=== PATIENT | female | born 1930 | race Caucasian/White ===

== ENCOUNTER 2017-02-28 19:17 | Inpatient (IN) | payer MEDICARE, BC ==
[~2017-02-28] VITALS: Ht 160 cm; Wt 78.6 kg
[~2017-02-28 19:17] MED LIST: ASPIRIN CHILDRE81 M1 PO; BENAZEPRIL HCT1 TAB PO; BENAZEPRIL HYDR20 MG PO; CO-Q10 300 MG-31 SGL PO; HYDROCHLOROTHIA25 M1 PO; KEFLEX 500MG.500 MG PO; LORAZEPAM1 MG PO; MACROBID 100MG100 MG PO; MULTI VITAMINS1 TA1 PO; PERCOCET 5/3251 EACH PO; TESSALON PERLE100 MG PO; TRICOR 145 MG145 MG PO; VYTORIN 10 MG-41 TAB PO; ZITHROMAX Z-PA250 M1 PO; ZOFRAN4 MG PO
[2017-02-28 19:19] VITALS: BP 165/103
--- OUTSIDE RECORDS SUMMARY | 2017-02-28 19:34 | External Medical Summary Rpt | CCD ---
Demographics Preferred Language Taiwanese Marital Status Unknown Christian Affiliation Unknown Race Unknown Ethnic Group Unknown Author Author , [facility] Organization [facility] Address Unknown Phone Immunization Unable to retrieve immunization data due to connection failure with Immunization Registry. Please try again later.
--- OUTSIDE RECORDS SUMMARY | 2017-02-28 19:34 | External Medical Summary Rpt | CCD ---
Demographics Preferred Language Swazi Marital Status Unknown Jewish Affiliation Unknown Race Unknown Ethnic Group Unknown Author Author , [facility] Organization [facility] Address Unknown Phone Immunization Unable to retrieve immunization data due to connection failure with Immunization Registry. Please try again later.
--- OUTSIDE RECORDS SUMMARY | 2017-02-28 19:34 | External Medical Summary Rpt | CCD ---
Author Author [facility] Organization [facility] Address Unknown Phone Unavailable Purpose Continuity of Care Document - through 2016
--- OUTSIDE RECORDS SUMMARY | 2017-02-28 19:34 | External Medical Summary Rpt | CCD ---
Author Author , [facility] Organization [facility] Address Unknown Phone [email or web address] Providers Care Corrections Identification Technician Name Role Phone Jarred Lara III, MD, Jarred Stewart III, MD Purpose Continuity of Care Document - 03-12-2013 through 2016 Problems Code Diagnosis DOS Provider Status 272.4 272.4 03-12-2013 [place] HYPERLIPIDE [facility] NEC/NOS [facility] 401.9 401.9 03-12-2013 [place] HYPERTENSIO [facility] N NOS Hospital 716.96 716.96 03-12-2013 [place] ARTHROPATHY [facility] NOS-L/LEG Hospital V43.65 V43.65 KNEE 03-12-2013 [place] 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 STATUS V58.69 V58.69 OTH 03-12-2013 [place] MED,LT,[facility] ENT USE [facility] [id number] J18.9 PNEUMONIA, UNSPECIFIED ORGANISM N39.0 URINARY TRACT INFECTION, SITE NOT SPECIFIED S02.92XA UNSP FRACTURE OF FACIAL BONES, INIT FOR CLOS FX Allergies, Adverse Reactions, Alerts Type Allergy to substance Adverse Reaction to Substance Substance Reaction Severity NO KNOWN ALLERGIES Unknown Unknown Medications Na ND Rx Da Fi Fi Am Da Di Ph RX Ph St me C No te ll ll ou ys ag ar # ys at rm s nt no ma ic us Or Da si cy ia de te s n re d MA 00 11 0 No PA 90 -0 P 41 6- Lo 32 98 20 ng 5 26 13 er MG 1 Ac TA ti BL ve ET Vital Signs 03-12-2013 16:18 Name Value Interpretat Reference Comment ion Range BP 81 mm[Hg] Diastolic BP Systolic 157 mm[Hg] Heart 76 /min Rate/Pulse O2% 97 % Respiratory 20 /min Rate 03-12-2013 15:24 Name Value Interpretat Reference Comment ion Range BP 66 mm[Hg] Diastolic BP Systolic 150 mm[Hg] Heart 51 /min Rate/Pulse O2% 96 % Respiratory 20 /min Rate Results Labs Lab Lab Date Result Refere Interp Status Commen Order Detail nces retati t Range on Creat Bld-mCnc (06-15-2016 14:53) Creat 1.00 0.60-1. complet BldA-mC 017 mg/dL 30 ed nc 14:53 Comment: Serial Number: [id number] [employer] Producer: [id number] Comp Metab 1998 Pnl SerPl (06-15-2016 14:24) Comment: [employer] Guidelines Comment: Comment: Stage Description GFR Comment: 1 Normal or High 90+ Comment: 2 Mild decrease 60-89 Comment: 3 Moderate decrease 30-59 Comment: 4 Severe decrease 15-29 Comment: 5 Kidney failure <15 Anion 8.0 3.0-11. complet Gap3 017 mmol/L 0 ed SerPl-s 14:24 Cnc BUN/Cre 18.8 7.0-25. complet at 017 0 ed SerPl 14:24 Albumin 1.3 1.5-2.5 complet /Glob 017 g/dL ed SerPl 14:24 Globuli 3.1 complet n Ur 017 gm/dL ed Elph-mC 14:24 nc GFR/BSA 69 >60 complet .pred 017 mL/min/ ed SerPl 14:24 1.73 MDRD-Ar VRat Bilirub 0.3 0.3-1.2 complet 017 mg/dL ed SerPl-m 14:24 Cnc ALP 128 U/L 25-100 complet SerPl-c 017 ed Cnc 14:24 AST 37 U/L 0-33 complet SerPl-c 017 ed Cnc 14:24 ALT 20 U/L 7-40 complet SerPl w 017 ed 14:24 P-5'-P- cCnc Albumin 4.00 3.20-4. complet 017 g/dL 80 ed SerPl-m 14:24 Cnc Prot 7.1 5.7-8.2 complet SerPl-m 017 g/dL ed Cnc 14:24 Calcium 10.1 8.7-10. complet 017 mg/dL 4 ed XXX-sCn 14:24 c CO2 28.0 20.0-31 complet SerPl-s 017 mmol/L .0 ed Cnc 14:24 Chlorid 95 99-109 complet e 017 mmol/L ed SerPl-s 14:24 Cnc Potassi 4.6 3.5-5.5 complet um 017 mmol/L ed Bld-sCn 14:24 c Sodium 131 132-146 complet Bld-sCn 017 mmol/L ed c 14:24 Creat 0.80 0.60-1. complet Bld-mCn 017 mg/dL 30 ed c 14:24 BUN 15 9-23 complet Bld-mCn 017 mg/dL ed c 14:24 Glucose 108 70-100 complet 017 mg/dL ed Bld-mCn 14:24 c CBC W Diff pnl,unspecified Bld (06-15-2016 14:24) Monocyt 0.70 0.00-1. complet es # 017 10*3/mm 00 ed Bld 14:24 3 Auto Lymphoc 0.90 0.60-4. complet ytes # 017 10*3/mm 80 ed Bld 14:24 3 Auto Neutrop 10.30 1.50-8. complet hils # 017 10*3/mm 30 ed Bld 14:24 3 Auto Monocyt 6.1 % 0.0-12. complet es NFr 017 0 ed Bld 14:24 Auto Lymphoc 7.2 % 24.0-44 complet ytes 017 .0 ed NFr Bld 14:24 Auto Neutrop 86.7 % 41.0-71 complet hils 017 .0 ed NFr Bld 14:24 Auto Platele 513 150-450 complet t # Bld 017 10*3/mm ed Auto 14:24 3 PMV Bld 6.1 fL 6.0-12. complet Auto 017 0 ed 14:24 MCHC 33.8 32.0-36 complet RBC 017 g/dL .0 ed Auto-mC 14:24 nc MCH RBC 29.9 pg 27.0-31 complet Qn 017 .0 ed Auto 14:24 MCV RBC 88.4 fL 80.0-99 complet Auto 017 .0 ed 14:24 RDW RBC 21.4 % 11.3-14 complet 017 .5 ed Auto-Rt 14:24 o Hct VFr 27.0 % 34.5-44 complet Bld 017 .0 ed Auto 14:24 Hgb 9.1 11.5-15 complet Bld-mCn 017 g/dL .5 ed c 14:24 RBC # 09- 3.06 3.89-5. complet Bld 017 10*6/mm 14 ed Auto 14:24 3 WBC 11.90 3.50-10 complet nRBC 017 10*3/mm .80 ed cor # 14:24 3 Bld Total Cells Counted Bld (06-03-2016 07:56) WBC [id number] Normal complet morph 017 01 ed Bld 07:56 Normal result SCT Plat [id number] Normal complet morph 017 01 ed Bld 07:56 Normal result SCT RBC [id number] Normal complet morph 017 01 ed Bld 07:56 Normal result SCT CBC W Diff pnl,unspecified Bld (06-03-2016 07:56) nRBC/10 0.0 0.0-0.0 complet 0 WBC 017 /100 ed Bld 07:56 WBC Manual- Rto Imm 0.01 0.00-0. complet Granulo 017 10*3/mm 03 ed cytes # 07:56 3 Bld Basophi 0.00 0.00-0. complet ls # 017 10*3/mm 20 ed Bld 07:56 3 Auto Eosinop 0.06 0.10-0. complet hil # 017 10*3/mm 30 ed Bld 07:56 3 Auto Monocyt 0.56 0.00-1. complet es # 017 10*3/mm 00 ed Bld 07:56 3 Auto Lymphoc 0.59 0.60-4. complet ytes # 017 10*3/mm 80 ed Bld 07:56 3 Auto Neutrop 06-03-2 1.51 1.50-8. complet hils # 017 10*3/mm 30 ed Bld 07:56 3 Auto Imm 0.4 % 0.0-0.6 complet Granulo 017 ed cytes 07:56 NFr Bld Basophi 0.0 % 0.0-1.0 complet ls NFr 017 ed Bld 07:56 Auto Eosinop 2.2 % 0.0-3.0 complet hil NFr 017 ed Bld 07:56 Auto Monocyt 20.5 % 0.0-12. complet es NFr 017 0 ed Bld 07:56 Auto Lymphoc 21.6 % 24.0-44 complet ytes 017 .0 ed NFr Bld 07:56 Auto Neutrop 55.3 % 41.0-71 complet hils 017 .0 ed NFr Bld 07:56 Auto Platele 171 150-450 complet t # Bld 017 10*3/mm ed Auto 07:56 3 PMV Bld 8.5 fL 6.0-12. complet Auto 017 0 ed 07:56 RDW RBC 61.4 fl 37.0-54 complet Auto 017 .0 ed 07:56 RDW RBC 19.4 % 11.3-14 complet 017 .5 ed Auto-Rt 07:56 o MCHC 33.1 32.0-36 complet RBC 017 g/dL .0 ed Auto-mC 07:56 nc MCH RBC 29.2 pg 27.0-31 complet Qn 017 .0 ed Auto 07:56 MCV RBC 88.2 fL 80.0-99 complet Auto 017 .0 ed 07:56 Hct VFr 31.4 % 34.5-44 complet Bld 017 .0 ed Auto 07:56 Hgb 10.4 11.5-15 complet Bld-mCn 017 g/dL .5 ed c 07:56 RBC # 06-03-2 3.56 3.89-5. complet Bld 017 10*6/mm 14 ed Auto 07:56 3 WBC 06-03-2 2.73 3.50-10 complet nRBC 017 10*3/mm .80 ed cor # 07:56 3 Bld Comp Metab 1997 Pnl SerPl (06-02-2016 04:25) Anion 2.0 3.0-11. complet Gap3 017 mmol/L 0 ed SerPl-s 04:25 Cnc BUN/Cre 28.9 7.0-25. complet at 017 0 ed SerPl 04:25 Albumin 1.1 1.5-2.5 complet /Glob 017 g/dL ed SerPl 04:25 Globuli 2.8 complet n Ur 017 gm/dL ed Elph-mC 04:25 nc GFR/BSA 60 >60 complet .pred 017 mL/min/ ed SerPl 04:25 1.73 MDRD-Ar VRat Bilirub 0.3 0.3-1.2 complet 017 mg/dL ed SerPl-m 04:25 Cnc ALP 117 U/L 25-100 complet SerPl-c 017 ed Cnc 04:25 AST 39 U/L 0-33 complet SerPl-c 017 ed Cnc 04:25 ALT 35 U/L 7-40 complet SerPl w 017 ed 04:25 P-5'-P- cCnc Albumin 3.20 3.20-4. complet 017 g/dL 80 ed SerPl-m 04:25 Cnc Prot 6.0 5.7-8.2 complet SerPl-m 017 g/dL ed Cnc 04:25 Calcium 8.9 8.7-10. complet 017 mg/dL 4 ed XXX-sCn 04:25 c CO2 28.0 20.0-31 complet SerPl-s 017 mmol/L .0 ed Cnc 04:25 Chlorid 101 99-109 complet e 017 mmol/L ed SerPl-s 04:25 Cnc Potassi 4.3 3.5-5.5 complet um 017 mmol/L ed Bld-sCn 04:25 c Sodium 131 132-146 complet Bld-sCn 017 mmol/L ed c 04:25 Creat 0.90 0.60-1. complet Bld-mCn 017 mg/dL 30 ed c 04:25 BUN 26 9-23 complet Bld-mCn 017 mg/dL ed c 04:25 Glucose 102 70-100 complet 017 mg/dL ed Bld-mCn 04:25 c aPTT PPP (06-02-2016 04:25) aPTT 32.3 24.0-31 complet PPP 017 seconds .0 ed 04:25 PT PPP (06-02-2016 04:25) INR PPP 0.97 complet 017 ed 04:25 PT PPP 10.6 9.6-11. complet 017 Seconds 5 ed 04:25 CBC W Diff pnl,unspecified Bld (06-02-2016 04:25) Imm 06-02-2 0.01 0.00-0. complet Granulo 017 10*3/mm 03 ed cytes # 04:25 3 Bld Basophi 2 0.00 0.00-0. complet ls # 017 10*3/mm 20 ed Bld 04:25 3 Auto Eosinop 0.06 0.10-0. complet hil # 017 10*3/mm 30 ed Bld 04:25 3 Auto Monocyt 06-02-2 0.29 0.00-1. complet es # 017 10*3/mm 00 ed Bld 04:25 3 Auto Lymphoc 0.64 0.60-4. complet ytes # 017 10*3/mm 80 ed Bld 04:25 3 Auto Neutrop 06-02-2 1.73 1.50-8. complet hils # 017 10*3/mm 30 ed Bld 04:25 3 Auto Imm 0.4 % 0.0-0.6 complet Granulo 017 ed cytes 04:25 NFr Bld Basophi 0.0 % 0.0-1.0 complet ls NFr 017 ed Bld 04:25 Auto Eosinop 2.2 % 0.0-3.0 complet hil NFr 017 ed Bld 04:25 Auto Monocyt 10.6 % 0.0-12. complet es NFr 017 0 ed Bld 04:25 Auto Lymphoc 23.4 % 24.0-44 complet ytes 017 .0 ed NFr Bld 04:25 Auto Neutrop 63.4 % 41.0-71 complet hils 017 .0 ed NFr Bld 04:25 Auto Platele 176 150-450 complet t # Bld 017 10*3/mm ed Auto 04:25 3 PMV Bld 7.6 fL 6.0-12. complet Auto 017 0 ed 04:25 RDW RBC 72.3 fl 37.0-54 complet Auto 017 .0 ed 04:25 RDW RBC 21.6 % 11.3-14 complet 017 .5 ed Auto-Rt 04:25 o MCHC 32.3 32.0-36 complet RBC 017 g/dL .0 ed Auto-mC 04:25 nc MCH RBC 29.7 pg 27.0-31 complet Qn 017 .0 ed Auto 04:25 MCV RBC 92.0 fL 80.0-99 complet Auto 017 .0 ed 04:25 Hct VFr 22.9 % 34.5-44 complet Bld 017 .0 ed Auto 04:25 Hgb 7.4 11.5-15 complet Bld-mCn 017 g/dL .5 ed c 04:25 RBC # 06-02-2 2.49 3.89-5. complet Bld 017 10*6/mm 14 ed Auto 04:25 3 WBC 2.73 3.50-10 complet nRBC 017 10*3/mm .80 ed cor # 04:25 3 Bld aPTT PPP (06-01-2016 12:54) aPTT 30.6 24.0-31 complet PPP 017 seconds .0 ed 12:54 PT PPP (06-01-2016 12:54) INR PPP 0.98 complet 017 ed 12:54 PT PPP 10.7 9.6-11. complet 017 Seconds 5 ed 12:54 Creat Bld-mCnc (05-25-2016 16:25) Creat 1.20 0.60-1. complet BldA-mC 017 mg/dL 30 ed nc 16:25 Comp Metab 1998 Pnl SerPl (05-25-2016 15:45) Anion 11.0 3.0-11. complet Gap3 017 mmol/L 0 ed SerPl-s 15:45 Cnc BUN/Cre 19.1 7.0-25. complet at 017 0 ed SerPl 15:45 Albumin 1.3 1.5-2.5 complet /Glob 017 g/dL ed SerPl 15:45 Globuli 2.9 complet n Ur 017 gm/dL ed Elph-mC 15:45 nc GFR/BSA 47 >60 complet .pred 017 mL/min/ ed SerPl 15:45 1.73 MDRD-Ar VRat Bilirub 0.2 0.3-1.2 complet 017 mg/dL ed SerPl-m 15:45 Cnc ALP 101 U/L 25-100 complet SerPl-c 017 ed Cnc 15:45 AST 19 U/L 0-33 complet SerPl-c 017 ed Cnc 15:45 ALT 13 U/L 7-40 complet SerPl w 017 ed 15:45 P-5'-P- cCnc Albumin 3.70 3.20-4. complet 017 g/dL 80 ed SerPl-m 15:45 Cnc Prot 6.6 5.7-8.2 complet SerPl-m 017 g/dL ed Cnc 15:45 Calcium 9.9 8.7-10. complet 017 mg/dL 4 ed XXX-sCn 15:45 c CO2 28.0 20.0-31 complet SerPl-s 017 mmol/L .0 ed Cnc 15:45 Chlorid 98 99-109 complet e 017 mmol/L ed SerPl-s 15:45 Cnc Potassi 4.0 3.5-5.5 complet um 017 mmol/L ed Bld-sCn 15:45 c Sodium 137 132-146 complet Bld-sCn 017 mmol/L ed c 15:45 Creat 1.10 0.60-1. complet Bld-mCn 017 mg/dL 30 ed c 15:45 BUN 21 9-23 complet Bld-mCn 017 mg/dL ed c 15:45 Glucose 191 70-100 complet 017 mg/dL ed Bld-mCn 15:45 c CBC W Diff pnl,unspecified Bld (05-25-2016 15:45) MCHC 32.2 32.0-36 complet RBC 017 g/dL .0 ed Auto-mC 15:45 nc Monocyt 0.65 0.00-1. complet es # 017 10*3/mm 00 ed Bld 15:45 3 Auto Lymphoc 0.60 0.60-4. complet ytes # 017 10*3/mm 80 ed Bld 15:45 3 Auto Neutrop 12.19 1.50-8. complet hils # 017 10*3/mm 30 ed Bld 15:45 3 Auto Imm 0.4 % 0.0-0.6 complet Granulo 017 ed cytes 15:45 NFr Bld Basophi 0.0 % 0.0-1.0 complet ls NFr 017 ed Bld 15:45 Auto Eosinop 0.0 % 0.0-3.0 complet hil NFr 017 ed Bld 15:45 Auto Monocyt 4.8 % 0.0-12. complet es NFr 017 0 ed Bld 15:45 Auto Lymphoc 4.4 % 24.0-44 complet ytes 017 .0 ed NFr Bld 15:45 Auto Neutrop 90.4 % 41.0-71 complet hils 017 .0 ed NFr Bld 15:45 Auto Platele 464 150-450 complet t # Bld 017 10*3/mm ed Auto 15:45 3 PMV Bld 2 8.2 fL 6.0-12. complet Auto 017 0 ed 15:45 RDW RBC 05-25- 73.2 fl 37.0-54 complet Auto 017 .0 ed 15:45 RDW RBC 05-25- 22.3 % 11.3-14 complet 017 .5 ed Auto-Rt 15:45 o MCH RBC 29.7 pg 27.0-31 complet Qn 017 .0 ed Auto 15:45 MCV RBC 92.4 fL 80.0-99 complet Auto 017 .0 ed 15:45 Hct VFr 25.5 % 34.5-44 complet Bld 017 .0 ed Auto 15:45 Hgb 8.2 11.5-15 complet Bld-mCn 017 g/dL .5 ed c 15:45 RBC # 05-25-2 2.76 3.89-5. complet Bld 017 10*6/mm 14 ed Auto 15:45 3 WBC 05-25-2 13.49 3.50-10 complet nRBC 017 10*3/mm .80 ed cor # 15:45 3 Bld Imm 05-25-2 0.05 0.00-0. complet Granulo 017 10*3/mm 03 ed cytes # 15:45 3 Bld Basophi 05-25- 0.00 0.00-0. complet ls # 017 10*3/mm 20 ed Bld 15:45 3 Auto Eosinop 0.00 0.10-0. complet hil # 017 10*3/mm 30 ed Bld 15:45 3 Auto Comp Metab 1997 Pnl SerPl (05-04-2016 10:09) Anion 8.0 3.0-11. complet Gap3 016 mmol/L 0 ed SerPl-s 10:09 Cnc BUN/Cre 18.9 7.0-25. complet at 016 0 ed SerPl 10:09 Albumin 1.5 1.5-2.5 complet /Glob 016 g/dL ed SerPl 10:09 Globuli 2.4 complet n Ur 016 gm/dL ed Elph-mC 10:09 nc GFR/BSA 60 >60 complet .pred 016 mL/min/ ed SerPl 10:09 1.73 MDRD-Ar VRat Bilirub 0.2 0.3-1.2 complet 016 mg/dL ed SerPl-m 10:09 Cnc ALP 119 U/L 25-100 complet SerPl-c 016 ed Cnc 10:09 AST 26 U/L 0-33 complet SerPl-c 016 ed Cnc 10:09 ALT 20 U/L 7-40 complet SerPl w 016 ed 10:09 P-5'-P- cCnc Albumin 3.60 3.20-4. complet 016 g/dL 80 ed SerPl-m 10:09 Cnc Prot 6.0 5.7-8.2 complet SerPl-m 016 g/dL ed Cnc 10:09 Calcium 9.6 8.7-10. complet 016 mg/dL 4 ed XXX-sCn 10:09 c CO2 28.0 20.0-31 complet SerPl-s 016 mmol/L .0 ed Cnc 10:09 Chlorid 100 99-109 complet e 016 mmol/L ed SerPl-s 10:09 Cnc Potassi 5.0 3.5-5.5 complet um 016 mmol/L ed Bld-sCn 10:09 c Sodium 136 132-146 complet Bld-sCn 016 mmol/L ed c 10:09 Creat 0.90 0.60-1. complet Bld-mCn 016 mg/dL 30 ed c 10:09 Glucose 98 70-100 complet 016 mg/dL ed Bld-mCn 10:09 c BUN 17 9-23 complet Bld-mCn 016 mg/dL ed c 10:09 CBC W Diff pnl,unspecified Bld (05-04-2016 10:09) RBC # 05-04-2 3.21 3.89-5. complet Bld 016 10*6/mm 14 ed Auto 10:09 3 Imm 12-29-2 0.02 0.00-0. complet Granulo 016 10*3/mm 03 ed cytes # 10:09 3 Bld Basophi 05-04-2 0.00 0.00-0. complet ls # 016 10*3/mm 20 ed Bld 10:09 3 Auto Eosinop 29-2 0.01 0.10-0. complet hil # 016 10*3/mm 30 ed Bld 10:09 3 Auto Monocyt 05-04-2 0.91 0.00-1. complet es # 016 10*3/mm 00 ed Bld 10:09 3 Auto Lymphoc 05-04-2 0.80 0.60-4. complet ytes # 016 10*3/mm 80 ed Bld 10:09 3 Auto Neutrop 05-04-2 9.16 1.50-8. complet hils # 016 10*3/mm 30 ed Bld 10:09 3 Auto Imm 05-04-2 0.2 % 0.0-0.6 complet Granulo 016 ed cytes 10:09 NFr Bld Basophi 05-04-2 0.0 % 0.0-1.0 complet ls NFr 016 ed Bld 10:09 Auto Eosinop 05-04-2 0.1 % 0.0-3.0 complet hil NFr 016 ed Bld 10:09 Auto Monocyt 05-04-2 8.3 % 0.0-12. complet es NFr 016 0 ed Bld 10:09 Auto Lymphoc 05-04-2 7.3 % 24.0-44 complet ytes 016 .0 ed NFr Bld 10:09 Auto Neutrop 05-04-2 84.1 % 41.0-71 complet hils 016 .0 ed NFr Bld 10:09 Auto Platele 05-04-2 416 150-450 complet t # Bld 016 10*3/mm ed Auto 10:09 3 PMV Bld 05-04-2 8.7 fL 6.0-12. complet Auto 016 0 ed 10:09 RDW RBC 05-04-2 55.0 fl 37.0-54 complet Auto 016 .0 ed 10:09 RDW RBC 05-04-2 18.8 % 11.3-14 complet 016 .5 ed Auto-Rt 10:09 o MCHC 12-29-2 32.4 32.0-36 complet RBC 016 g/dL .0 ed Auto-mC 10:09 nc MCH RBC 28.7 pg 27.0-31 complet Qn 016 .0 ed Auto 10:09 MCV RBC 88.5 fL 80.0-99 complet Auto 016 .0 ed 10:09 Hct VFr 28.4 % 34.5-44 complet Bld 016 .0 ed Auto 10:09 Hgb 9.2 11.5-15 complet Bld-mCn 016 g/dL .5 ed c 10:09 WBC 10.90 3.50-10 complet nRBC 016 10*3/mm .80 ed cor # 10:09 3 Bld Creat Bld-mCnc (04-13-2016 15:06) Creat 1.10 0.60-1. complet BldA-mC 016 mg/dL 30 ed nc 15:06 Comp Metab 1998 Pnl SerPl (04-13-2016 14:34) Anion 8.0 3.0-11. complet Gap3 016 mmol/L 0 ed SerPl-s 14:34 Cnc BUN/Cre 20.0 7.0-25. complet at 016 0 ed SerPl 14:34 Albumin 1.3 complet /Glob 016 g/dL ed SerPl 14:34 Globuli 2.8 complet n Ur 016 gm/dL ed Elph-mC 14:34 nc GFR/BSA 47 >60 complet .pred 016 mL/min/ ed SerPl 14:34 1.73 MDRD-Ar VRat Bilirub 0.2 0.3-1.2 complet 016 mg/dL ed SerPl-m 14:34 Cnc ALP 94 U/L 25-100 complet SerPl-c 016 ed Cnc 14:34 AST 24 U/L 0-33 complet SerPl-c 016 ed Cnc 14:34 ALT 18 U/L 7-40 complet SerPl w 016 ed 14:34 P-5'-P- cCnc Albumin 3.70 3.20-4. complet 016 g/dL 80 ed SerPl-m 14:34 Cnc Prot 6.5 5.7-8.2 complet SerPl-m 016 g/dL ed Cnc 14:34 Calcium 9.8 8.7-10. complet 016 mg/dL 4 ed XXX-sCn 14:34 c CO2 25.0 20.0-31 complet SerPl-s 016 mmol/L .0 ed Cnc 14:34 Chlorid 101 99-109 complet e 016 mmol/L ed SerPl-s 14:34 Cnc Potassi 3.8 3.5-5.5 complet um 016 mmol/L ed Bld-sCn 14:34 c Sodium 134 132-146 complet Bld-sCn 016 mmol/L ed c 14:34 Creat 1.10 0.60-1. complet Bld-mCn 016 mg/dL 30 ed c 14:34 BUN 22 9-23 complet Bld-mCn 016 mg/dL ed c 14:34 Glucose 205 70-100 complet 016 mg/dL ed Bld-mCn 14:34 c CBC W Diff pnl,unspecified Bld (04-13-2016 14:34) Monocyt 0.20 0.00-1. complet es # 016 10*3/mm 00 ed Bld 14:34 3 Auto Lymphoc 0.70 0.60-4. complet ytes # 016 10*3/mm 80 ed Bld 14:34 3 Auto Neutrop 8.00 1.50-8. complet hils # 016 10*3/mm 30 ed Bld 14:34 3 Auto Monocyt 2.1 % 0.0-12. complet es NFr 016 0 ed Bld 14:34 Auto Lymphoc 8.2 % 24.0-44 complet ytes 016 .0 ed NFr Bld 14:34 Auto Neutrop 89.7 % 41.0-71 complet hils 016 .0 ed NFr Bld 14:34 Auto Platele 414 150-450 complet t # Bld 016 10*3/mm ed Auto 14:34 3 PMV Bld 6.7 fL 6.0-12. complet Auto 016 0 ed 14:34 MCHC 31.6 32.0-36 complet RBC 016 g/dL .0 ed Auto-mC 14:34 nc MCH RBC 26.8 pg 27.0-31 complet Qn 016 .0 ed Auto 14:34 MCV RBC 84.9 fL 80.0-99 complet Auto 016 .0 ed 14:34 RDW RBC 18.5 % 11.3-14 complet 016 .5 ed Auto-Rt 14:34 o Hct VFr 30.3 % 34.5-44 complet Bld 016 .0 ed Auto 14:34 Hgb 9.6 11.5-15 complet Bld-mCn 016 g/dL .5 ed c 14:34 RBC # 08- 3.57 3.89-5. complet Bld 016 10*6/mm 14 ed Auto 14:34 3 WBC 8.90 3.50-10 complet nRBC 016 10*3/mm .80 ed cor # 14:34 3 Bld Creat Bld-mCnc (03-23-2016 14:24) Creat 1.10 0.60-1. complet BldA-mC 016 mg/dL 30 ed nc 14:24 Comp Metab 1998 Pnl SerPl (03-23-2016 13:50) Anion 6.0 3.0-11. complet Gap3 016 mmol/L 0 ed SerPl-s 13:50 Cnc BUN/Cre 18.0 7.0-25. complet at 016 0 ed SerPl 13:50 Albumin 1.1 complet /Glob 016 g/dL ed SerPl 13:50 Globuli 3.2 complet n Ur 016 gm/dL ed Elph-mC 13:50 nc GFR/BSA 53 >60 complet .pred 016 mL/min/ ed SerPl 13:50 1.73 MDRD-Ar VRat Bilirub 0.3 0.3-1.2 complet 016 mg/dL ed SerPl-m 13:50 Cnc ALP 03-23-2 83 U/L 25-100 complet SerPl-c 016 ed Cnc 13:50 AST 03-23-2 18 U/L 0-33 complet SerPl-c 016 ed Cnc 13:50 ALT 17-2 12 U/L 7-40 complet SerPl w 016 ed 13:50 P-5'-P- cCnc Albumin 03-23- 3.60 3.20-4. complet 016 g/dL 80 ed SerPl-m 13:50 Cnc Prot 17-2 6.8 5.7-8.2 complet SerPl-m 016 g/dL ed Cnc 13:50 Calcium 03-23-2 10.5 8.7-10. complet 016 mg/dL 4 ed XXX-sCn 13:50 c CO2 03-23-2 28.0 20.0-31 complet SerPl-s 016 mmol/L .0 ed Cnc 13:50 Chlorid 03-23-2 96 99-109 complet e 016 mmol/L ed SerPl-s 13:50 Cnc Potassi 03-23-2 4.1 3.5-5.5 complet um 016 mmol/L ed Bld-sCn 13:50 c Sodium 03-23-2 130 132-146 complet Bld-sCn 016 mmol/L ed c 13:50 Creat 03-23-2 1.00 0.60-1. complet Bld-mCn 016 mg/dL 30 ed c 13:50 BUN 03-23-2 18 9-23 complet Bld-mCn 016 mg/dL ed c 13:50 Glucose 03-23-2 160 70-100 complet 016 mg/dL ed Bld-mCn 13:50 c CBC W Diff pnl,unspecified Bld (03-23-2016 13:50) Neutrop 03-23-2 11.30 1.50-8. complet hils # 016 10*3/mm 30 ed Bld 13:50 3 Auto Platele 03-23-2 397 150-450 complet t # Bld 016 10*3/mm ed Auto 13:50 3 PMV Bld 03-23-2 6.7 fL 6.0-12. complet Auto 016 0 ed 13:50 Lymphoc 03-23-2 0.80 0.60-4. complet ytes # 016 10*3/mm 80 ed Bld 13:50 3 Auto MCH RBC 11-17-2 27.3 pg 27.0-31 complet Qn 016 .0 ed Auto 13:50 MCV RBC 11-17-2 83.2 fL 80.0-99 complet Auto 016 .0 ed 13:50 RDW RBC 11-17-2 15.6 % 11.3-14 complet 016 .5 ed Auto-Rt 13:50 o Hct VFr 11-17-2 36.4 % 34.5-44 complet Bld 016 .0 ed Auto 13:50 Hgb 11-17-2 12.0 11.5-15 complet Bld-mCn 016 g/dL .5 ed c 13:50 RBC # 11-17-2 4.38 3.89-5. complet Bld 016 10*6/mm 14 ed Auto 13:50 3 WBC 11-17-2 12.40 3.50-10 complet nRBC 016 10*3/mm .80 ed cor # 13:50 3 Bld Monocyt 11-17-2 2.6 % 0.0-12. complet es NFr 016 0 ed Bld 13:50 Auto Lymphoc 11-17-2 6.6 % 24.0-44 complet ytes 016 .0 ed NFr Bld 13:50 Auto Neutrop 11-17-2 90.8 % 41.0-71 complet hils 016 .0 ed NFr Bld 13:50 Auto Monocyt 11-17-2 0.30 0.00-1. complet es # 016 10*3/mm 00 ed Bld 13:50 3 Auto MCHC 11-17-2 32.9 32.0-36 complet RBC 016 g/dL .0 ed Auto-mC 13:50 nc Fungus XXX Cult (03-08-2016 13:43) Fungus No complet Wnd 016 fungus ed Cult 13:43 isolate d at 6 weeks Mycobacterium XXX Cult (03-08-2016 13:43) Night No acid complet blue 016 fast ed stain 13:43 bacilli Tiss seen on concent rated smear Chymotr No AFB complet yp Ab 016 isolate ed Ser-aCn 13:43 d at 6 c weeks Bacteria XXX Resp Cult (03-08-2016 13:43) Gram No WBCs complet Stn XXX 016 or ed 13:43 organis ms seen Fungus XXX PAS Stn (03-08-2016 13:43) Gie Stn No complet XXX 016 Pneumoc ed 13:43 ystis jirovec ci (former ly Pneumoc ystis carinii ) noted on smear. Gie Stn No complet XXX 016 fungal ed 13:43 element s seen Procedures Procedure DOS Code Location Performer Comment APPLICATI 93.54 Jarred Stewart III, MD Encounters Encounter Start End Date Code Location Performer Type Date Emergency DEVON Stewart (ER) 3 14:45 3 16:28 [facility] Jarred Atkinson
--- OUTSIDE RECORDS SUMMARY | 2017-02-28 19:34 | External Medical Summary Rpt | CCD ---
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 Name Role Phone Jarred Lara III, MD, Jarred Stewart III, MD Purpose Continuity of Care Document - 03-12-2013 through 2016 Problems Code Diagnosis DOS Provider Status 272.4 272.4 03-12-2013 Lawrence HYPERLIPIDE [facility] NEC/NOS Hospital 401.9 401.9 03-12-2013 Lawrence HYPERTENSIO [facility] N NOS Hospital 716.96 716.96 03-12-2013 Lawrence ARTHROPATHY [facility] NOS-L/LEG Hospital V43.65 V43.65 KNEE 03-12-2013 Lawrence JOINT [facility] REPLACEMENT Hospital STATUS V58.69 V58.69 OTH 03-12-2013 Lawrence MED,LT,[facility] ENT USE [facility] [id number] J18.9 PNEUMONIA, UNSPECIFIED ORGANISM N39.0 URINARY TRACT [...] 30 ed nc 14:53 Comment: Serial Number: [id number] Classroom Aide: [id number] Comp Metab 1998 Pnl SerPl (06-15-2016 14:24) [...] Total Cells Counted Bld (06-03-2016 07:56) WBC [id number] Normal complet morph 017 01 ed Bld 07:56 Normal result SCT Plat [id number] Normal complet morph 017 01 ed Bld 07:56 Normal result SCT RBC [id number] Normal complet morph 017 01 ed Bld [...] DEVON Stewart (ER) 3 14:45 3 16:28 [facility] Jarred Atkinson
--- NOTE | 2017-02-28 21:15 | Emergency Room Report ---
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 N Clinical Suspician of Infection? N Mental Status: 1 - Regular (Normal Baseline) Sepsis Risk:Low Sepsis Risk Have you (or family members/close friends) recently traveled outside the [place]? N If Yes, where/when: Have you had exposure to infectious disease within the past month? N TB? Other? Specify: Source patient, RN notes reviewed, family, RN/MD Exam Limitations no limitations Comment This is a 86-year-old female patient arriving to the emergency room by EMS after tripping onto a gown and falling on her LEFT side, just half an hour prior to arrival. Patient denies any neck pain, denies any head injury or loss of consciousness. She is complaining with LEFT hip pain and LEFT shoulder pain. He is a known history of RIGHT lung cancer, stage IV, currently in hospice. She is oxygen dependent at home. ALLERGIES Coded Allergies: No Known Drug Allergies (NKDA) (-- 03/01/17) Home Medications Active Scripts Oxycodone 5MG/[id number] (Oxycodone-Acetaminophen 5-325) 1 TAB PO Q4HP PRN pain #10 TAB Prov: 02/02/15 NITROFURANTOIN (Nitrofurantoin) 100 MG PO Q12 #20 CAP Prov: 02/02/15 Reported Medications Lorazepam 1 MG PO BEDTIME Aspirin 81 MG PO DAILY HYDROCHLOROTHIAZIDE (Hydrochlorothiazide) 25 MG PO DAILY Coenzyme Q10/Vitamin E (Co-Q10 300 Mg-3 Iu) 1 SGL PO DAILY MULTIVITAMIN (One Daily Multivitamin) 1 TAB PO DAILY Benazepril Hcl (Benazepril HCl) 20 MG PO DAILY #90 History Medical History General CAD? No Angina: No [place]: No Hypertension? Yes Hyperlipidemia? Yes CHF? No DVT? No PE? No COPD? No Asthma? No Anemia? No GERD? No Gastric ulcers? No GI Bleed? No Hernia? No Thyroid Problems? No Hypothyroidism? No CVA? No Seizures? No Diabetes? No Renal Insuffiency? No End Stage Renal Disease? No UTI? No Stones? No BPH? No GB Disease: Yes Nephritic Syndrome? No Asplenia? No Hepatitis? No Sickle Cell Disease? No Arthritis? No Migraines? No Cataracts? Yes Glaucoma? No MRSA? No HIV? No TB? No Anxiety? No Depression? No Cancer? Yes Site: LUNG CA Immunization Hx DT/Tetanus [id number] Flu THISFLUSEA Pneumonia Received In Past Surgical Hx Previous Surgery?Y TUBAL LIG Hysterect BLADDER TUCK Back. LEFT KNEE CATARACTS CHEMO/RADIATION 2014 Family History Family Hx Diabetes No CAD Yes Hypertension Yes Hyperlipidemia Yes Cancer Yes TB No Social History Smoking Hx Smoker: Never Smoker Tobacco: No Alcohol Alcohol: No Review of Systems All Other Systems Reviewed and Negative Musculoskeletal joint pain (LEFT hip/LEFT shoulder) Physical Exam Vital Signs Vital Signs Date Time Temp Pulse Resp B/P Pulse O2 O2 Flow FiO2 Ox Delivery Rate 02/28 2155 83 02/28 2155 90 OXYGEN 02/28 2141 98.3 65 22 146/77 96 4 02/283 2 02/28 2133 2 02/28 2133 90 OXYGEN 2 02/28 2133 90 OXYGEN 3 02/28 2123 98.3 65 22 146/77 96 4 02/28 1919 98.3 85 22 165/103 90 4 General Appearance normal appearance, WD/WN, moderate distress Eye Exam - bilateral eye normal exam, bilateral eye PERRL, bilateral eye EOMI Neck normal inspection, non-tender, supple, full range of motion Respiratory Status Yes: trachea midline, chest symmetrical, non tender chest. No: respiratory distress. Lung Sounds bilateral: normal breath sounds, lungs clear. Cardiovascular normal exam, regular rate/rhythm, no peripheral edema, no gallop, no JVD, no murmur, no rub, normal peripheral pulses Gastrointestinal normal bowel sounds, normal exam, non tender, soft, no organomegaly Extremities LEFT hip tender to palpation, left lower extremity is shorther, rotataed externally. good distal palpable pulses, LEFT proximal humerus to palpation Neurologic alert, anesthesiologist attending II-XII nml as tested, normal exam, oriented x 3 Reflexes Reflexes normal Yes Skin intact, normal color, warm/dry Medical Decision Making LABS/Meds/Orders Pt receiving controlled substance in ED? No Comment 20:45 - case d/w Dr Nohemi Benavides, advised of patient's presentation findings, agreeable with admission/consultation. Advised dr. Benavides that patient is in hospice, due to her lung cancer. 21:12 - case d/w Dr Fontenot, advised of the above, agreeable with hospitalization. Advised dr. Fontenot that patient is in hospice, due to her lung cancer. Care transferred to Dr. Fontenot/Dr. Benavides at this time, will write temporary admission orders per hospital protocol. Upon patient's arrival to the floor, they unit nurse will contact Dr. lyle/Dr. Fontenot in order to obtain full inpatient admission orders. Results/Orders Laboratory Tests 02/28/170: Sodium 135 L, Potassium 4.5, Chloride 99, Carbon Dioxide 31, BUN 31 H, Creatinine 1.5 H, Estimated Creat Clear 32 L, Estimated GFR (MDRD) 33 L, Glucose 114 H, Calcium 9.3, Total Bilirubin 0.3, AST 34, ALT 38, Alkaline Phosphatase 123 H, Creatine Kinase 35, CK-MB (CK-2) Rel Index 1.4, CK and CKMB Interp < 0.5, Troponin I < 0.02, Total Protein 6.7, Albumin 2.7 L, Globulin 4.0 H, Albumin/Globulin Ratio 0.7 L, PT 9.9, INR 0.92, APTT 28.1, WBC 11.5 H, RBC 4.09 L, Hgb 12.1 L, Hct 37.0, MCV 90.4, RDW 14.1, Plt Count 263, MPV 7.0 L, Gran % 86.6 H, Gran # 10.0 H, Total Counted 100, Lymphocytes % 9.2 L, Monocytes % 3.7, Eosinophils % 0.5, Basophils % 0.0 L, Neutrophils 93 H, Lymphocytes (Manual) 5 L, Lymphocytes # 1.1, Monocytes (Manual) 2, Monocytes # 0.4, Eosinophils # 0.1, Basophils # 0.0, Platelet Estimate NORMAL, Hypochromasia 1+, Anisocytosis 1+, PUBS MCHC 32.8, MCH 29.7 Current Medication Orders Sig/Aquilino Start time Last Medication Dose Route Stop Time Status Admin Morphine Sulfate 2 MG Q4HP PRN 02/28 2145 DC 02/28 IV 2237 Ondansetron HCl 4 MG Q4HP PRN 02/28 2145 UNV IV Sodium Chloride 1,000 ML .Q20H 02/28 2145 UNV 02/28 IV 2237 Sodium Chloride 10 ML PRN PRN 02/28 2115 AC IV 03/01 2111 Orders Procedure Date/time Status DIET-NOTHING BY MOUTH 03/01 B Active URINALYSIS/COMPLETE 02/28 2205 Complete DIFFERENTIAL-WBC 02/28 2130 Complete ELECTROCARDIOGRAM REQUEST 02/28 2111 Active IV SALINE LOCK 02/28 2111 Active SALVAGE WINDER 02/28 2111 Active PARTIAL THROMBOPLASTIN TIME 02/28 2111 Complete PROTHROMBIN TIME 02/28 2111 Complete COMPLETE METABOLIC PANEL 02/28 2111 Complete CBC WITH AUTO DIFF 02/28 2111 Complete CARDIAC ENZYMES 02/28 2111 Complete ADMIT PATIENT 02/28 UNK Active PULSE OXIMETRY REQUEST 02/28 UNK Active OXYGEN REQUEST 02/28 UNK Active VITAL SIGNS 02/28 UNK Active BRIEF WRITER 02/28 UNK Active POM NURSE PEPITO HOSE ORDER 02/28 UNK Active URINARY CATHETER INSERT 02/28 UNK Active CODE STATUS 02/28 UNK Active PATIENT ACTIVITY ORDER 02/28 UNK Active Traction, Apply/monitor 02/28 UNK Active PHYSICIANS CONSULT 02/28 UNK Active CM/EKG CM/combination man Rhythm Normal Sinus Rhythm Rate 88 Ectopy No Comments No acute ischemic changes EKG rate, NSR, rhythm, no evid. of ischemic chgs, no ectopy, normal QRS, normal [place], no EKG for comparison, non-spec. ST/Twave chgs, ST elevation, ST depression, LBBB, RBBB, ectopy, abnormal Q waves XRAY/CT/US XRAY/CT/US 1 XRAY chest XR interpretation by reviewed by me Xray Results RIGHT lung opacification, consistent with patient's history of RIGHT lung cancer, metastatic XRAY/CT/US 2 XRAY shoulder (left), LEFT femur- fracture neck of the femur LEFT hip - fracture of the neck of the femur XR interpretation by reviewed by me Xray Results normal/NAD, no fracture seen XRAY/CT/US 3 XRAY hip (left) XR interpretation by reviewed by me Xray Results abnormal Comment Fx intertrochanteric XRAY/CT/US 4 XRAY femur (left) XR interpretation by reviewed by me Xray Results abnormal Comment intertrochanteric fx Departure Departure Time of Disposition 2113 Disposition Still a Patient Clinical Impression Primary Impression: Closed intertrochanteric fracture of left hip Qualifiers: Encounter type: initial encounter Fracture alignment: nondisplaced Qualified Code: S72.145A - Nondisplaced intertrochanteric fracture of left femur , initial encounter for closed fracture Secondary Impressions: Fall Qualifiers: Encounter type: initial encounter Qualified Code: W19.XXXA - Unspecified fall, initial encounter Lung cancer Qualifiers: Laterality: right Lung location: unspecified part of lung Qualified Code: C34.91 - Malignant neoplasm of unspecified part of right bronchus or lung Condition STABLE ED Critical Care Critical Care No at 0548
--- NOTE | 2017-02-28 21:15 | Emergency Room Report ---
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 N Clinical Suspician of Infection? N Mental Status: 1 - Regular (Normal Baseline) Sepsis Risk:Low Sepsis Risk Have you (or family members/close friends) recently traveled outside the [place]? N If Yes, where/when: Have you had exposure to infectious disease within the past month? N TB? Other? Specify: Source patient, RN notes reviewed, family, RN/MD Exam Limitations no limitations Comment This is a 86-year-old female patient arriving to the emergency room by EMS after tripping onto a gown and falling on her LEFT side, just half an hour prior to arrival. Patient denies any neck pain, denies any head injury or loss of consciousness. She is complaining with LEFT hip pain and LEFT shoulder pain. He is a known history of RIGHT lung cancer, stage IV, currently in hospice. She is oxygen dependent at home. ALLERGIES Coded Allergies: No Known Drug Allergies (NKDA) (-- 03/01/17) Home Medications Active Scripts Oxycodone 5MG/[id number] (Oxycodone-Acetaminophen 5-325) 1 TAB PO Q4HP PRN pain #10 TAB Prov: 02/02/15 NITROFURANTOIN (Nitrofurantoin) 100 MG PO Q12 #20 CAP Prov: 02/02/15 Reported Medications Lorazepam 1 MG PO BEDTIME Aspirin 81 MG PO DAILY HYDROCHLOROTHIAZIDE (Hydrochlorothiazide) 25 MG PO DAILY Coenzyme Q10/Vitamin E (Co-Q10 300 Mg-3 Iu) 1 SGL PO DAILY MULTIVITAMIN (One Daily Multivitamin) 1 TAB PO DAILY Benazepril Hcl (Benazepril HCl) 20 MG PO DAILY #90 History Medical History General CAD? No Angina: No NH: No Hypertension? Yes Hyperlipidemia? Yes CHF? No DVT? No PE? No COPD? No Asthma? No Anemia? No GERD? No Gastric ulcers? No GI Bleed? No Hernia? No Thyroid Problems? No Hypothyroidism? No CVA? No Seizures? No Diabetes? No Renal Insuffiency? No End Stage Renal Disease? No UTI? No Stones? No BPH? No GB Disease: Yes Nephritic Syndrome? No Asplenia? No Hepatitis? No Sickle Cell Disease? No Arthritis? No Migraines? No Cataracts? Yes Glaucoma? No MRSA? No HIV? No TB? No Anxiety? No Depression? No Cancer? Yes Site: LUNG CA Immunization Hx DT/Tetanus [id number] Flu THISFLUSEA Pneumonia Received In Past Surgical Hx Previous Surgery?Y TUBAL LIG Hysterect BLADDER TUCK Back. LEFT KNEE CATARACTS CHEMO/RADIATION 2014 Family History Family Hx Diabetes No CAD Yes Hypertension Yes Hyperlipidemia Yes Cancer Yes TB No Social History Smoking Hx Smoker: Never Smoker Tobacco: No Alcohol Alcohol: No Review of Systems All Other Systems Reviewed and Negative Musculoskeletal joint pain (LEFT hip/LEFT shoulder) Physical Exam Vital Signs Vital Signs Date Time Temp Pulse Resp B/P Pulse O2 O2 Flow FiO2 Ox Delivery Rate 02/28 2155 83 02/28 2155 90 OXYGEN 02/28 2141 98.3 65 22 146/77 96 4 02/283 2 02/28 2133 2 02/28 2133 90 OXYGEN 2 02/28 2133 90 OXYGEN 3 02/28 2123 98.3 65 22 146/77 96 4 02/28 1919 98.3 85 22 165/103 90 4 General Appearance normal appearance, WD/WN, moderate distress Eye Exam - bilateral eye normal exam, bilateral eye PERRL, bilateral eye EOMI Neck normal inspection, non-tender, supple, full range of motion Respiratory Status Yes: trachea midline, chest symmetrical, non tender chest. No: respiratory distress. Lung Sounds bilateral: normal breath sounds, lungs clear. Cardiovascular normal exam, regular rate/rhythm, no peripheral edema, no gallop, no JVD, no murmur, no rub, normal peripheral pulses Gastrointestinal normal bowel sounds, normal exam, non tender, soft, no organomegaly Extremities LEFT hip tender to palpation, left lower extremity is shorther, rotataed externally. good distal palpable pulses, LEFT proximal humerus to palpation Neurologic alert, leadership development instructor II-XII nml as tested, normal exam, oriented x 3 Reflexes Reflexes normal Yes Skin intact, normal color, warm/dry Medical Decision Making LABS/Meds/Orders Pt receiving controlled substance in ED? No Comment 20:45 - case d/w Dr Nohemi Benavides, advised of patient's presentation findings, agreeable with admission/consultation. Advised dr. Benavides that patient is in hospice, due to her lung cancer. 21:12 - case d/w Dr Fontenot, advised of the above, agreeable with hospitalization. Advised dr. Fontenot that patient is in hospice, due to her lung cancer. Care transferred to Dr. Fontenot/Dr. Benavides at this time, will write temporary admission orders per hospital protocol. Upon patient's arrival to the floor, they unit nurse will contact Dr. lyle/Dr. Fontenot in order to obtain full inpatient admission orders. Results/Orders Laboratory Tests 02/28/170: Sodium 135 L, Potassium 4.5, Chloride 99, Carbon Dioxide 31, BUN 31 H, Creatinine 1.5 H, Estimated Creat Clear 32 L, Estimated GFR (MDRD) 33 L, Glucose 114 H, Calcium 9.3, Total Bilirubin 0.3, AST 34, ALT 38, Alkaline Phosphatase 123 H, Creatine Kinase 35, CK-MB (CK-2) Rel Index 1.4, CK and CKMB Interp < 0.5, Troponin I < 0.02, Total Protein 6.7, Albumin 2.7 L, Globulin 4.0 H, Albumin/Globulin Ratio 0.7 L, PT 9.9, INR 0.92, APTT 28.1, WBC 11.5 H, RBC 4.09 L, Hgb 12.1 L, Hct 37.0, MCV 90.4, RDW 14.1, Plt Count 263, MPV 7.0 L, Gran % 86.6 H, Gran # 10.0 H, Total Counted 100, Lymphocytes % 9.2 L, Monocytes % 3.7, Eosinophils % 0.5, Basophils % 0.0 L, Neutrophils 93 H, Lymphocytes (Manual) 5 L, Lymphocytes # 1.1, Monocytes (Manual) 2, Monocytes # 0.4, Eosinophils # 0.1, Basophils # 0.0, Platelet Estimate NORMAL, Hypochromasia 1+, Anisocytosis 1+, PUBS MCHC 32.8, MCH 29.7 Current Medication Orders Sig/Aquilino Start time Last Medication Dose Route Stop Time Status Admin Morphine Sulfate 2 MG Q4HP PRN 02/28 2145 DC 02/28 IV 2237 Ondansetron HCl 4 MG Q4HP PRN 02/28 2145 UNV IV Sodium Chloride 1,000 ML .Q20H 02/28 2145 UNV 02/28 IV 2237 Sodium Chloride 10 ML PRN PRN 02/28 2115 AC IV 03/01 2111 Orders Procedure Date/time Status DIET-NOTHING BY MOUTH 03/01 B Active URINALYSIS/COMPLETE 02/28 2205 Complete DIFFERENTIAL-WBC 02/28 2130 Complete ELECTROCARDIOGRAM REQUEST 02/28 2111 Active IV SALINE LOCK 02/28 2111 Active EBAY RESELLER 02/28 2111 Active PARTIAL THROMBOPLASTIN TIME 02/28 2111 Complete PROTHROMBIN TIME 02/28 2111 Complete COMPLETE METABOLIC PANEL 02/28 2111 Complete CBC WITH AUTO DIFF 02/28 2111 Complete CARDIAC ENZYMES 02/28 2111 Complete ADMIT PATIENT 02/28 UNK Active PULSE OXIMETRY REQUEST 02/28 UNK Active OXYGEN REQUEST 02/28 UNK Active VITAL SIGNS 02/28 UNK Active DEVELOPMENT VICE PRESIDENT 02/28 UNK Active POM NURSE PEPITO HOSE ORDER 02/28 UNK Active URINARY CATHETER INSERT 02/28 UNK Active CODE STATUS 02/28 UNK Active PATIENT ACTIVITY ORDER 02/28 UNK Active Traction, Apply/monitor 02/28 UNK Active PHYSICIANS CONSULT 02/28 UNK Active CM/EKG CM/commissions specialist Rhythm Normal Sinus Rhythm Rate 88 Ectopy No Comments No acute ischemic changes EKG rate, NSR, rhythm, no evid. of ischemic chgs, no ectopy, normal QRS, normal [place], no EKG for comparison, non-spec. ST/Twave chgs, ST elevation, ST depression, LBBB, RBBB, ectopy, abnormal Q waves XRAY/CT/US XRAY/CT/US 1 XRAY chest XR interpretation by reviewed by me Xray Results RIGHT lung opacification, consistent with patient's history of RIGHT lung cancer, metastatic XRAY/CT/US 2 XRAY shoulder (left), LEFT femur- fracture neck of the femur LEFT hip - fracture of the neck of the femur XR interpretation by reviewed by me Xray Results normal/NAD, no fracture seen XRAY/CT/US 3 XRAY hip (left) XR interpretation by reviewed by me Xray Results abnormal Comment Fx intertrochanteric XRAY/CT/US 4 XRAY femur (left) XR interpretation by reviewed by me Xray Results abnormal Comment intertrochanteric fx Departure Departure Time of Disposition 2113 Disposition Still a Patient Clinical Impression Primary Impression: Closed intertrochanteric fracture of left hip Qualifiers: Encounter type: initial encounter Fracture alignment: nondisplaced Qualified Code: S72.145A - Nondisplaced intertrochanteric fracture of left femur , initial encounter for closed fracture Secondary Impressions: Fall Qualifiers: Encounter type: initial encounter Qualified Code: W19.XXXA - Unspecified fall, initial encounter Lung cancer Qualifiers: Laterality: right Lung location: unspecified part of lung Qualified Code: C34.91 - Malignant neoplasm of unspecified part of right bronchus or lung Condition STABLE ED Critical Care Critical Care No at 0548
--- OUTSIDE RECORDS SUMMARY | 2017-02-28 21:26 | External Medical Summary Rpt | CCD ---
Author Author , QUOC Organization [employer] Address Unknown Phone [email or web address] Providers Care Account Services Associate Name Role Phone Jarred Lara III, MD, Jarred Stewart III, MD Purpose Continuity of Care Document - 03-12-2013 through 2016 Problems Code Diagnosis DOS Provider Status 272.4 272.4 03-12-2013 [place] HYPERLIPIDE [facility] NEC/NOS Hospital 401.9 401.9 03-12-2013 [place] HYPERTENSIO [facility] N NOS Hospital 716.96 716.96 03-12-2013 [place] ARTHROPATHY [facility] NOS-L/LEG Hospital V43.65 V43.65 KNEE 03-12-2013 [place] JOINT [facility] REPLACEMENT Hospital STATUS V58.69 V58.69 OTH 03-12-2013 [place] MED,LT,[facility] ENT USE Hospital Allergies, Adverse Reactions, Alerts Type Allergy to [...] 30 ed nc 14:53 Comment: Serial Number: [id number] Precision Lathe Operator: [id number] Comp Metab 1998 Pnl SerPl (06-15-2016 14:24) [...] Auto 017 .0 ed 14:24 RDW RBC 06-15- 21.4 % 11.3-14 complet 017 .5 ed [...] Total Cells Counted Bld (06-03-2016 07:56) WBC [id number] Normal complet morph 017 01 ed Bld 07:56 Normal result SCT Plat [id number] Normal complet morph 017 01 ed Bld 07:56 Normal result SCT RBC [id number] Normal complet morph 017 01 ed Bld [...] 80 ed Bld 07:56 3 Auto Neutrop 1.51 1.50-8. complet hils # 017 10*3/mm [...] 10*6/mm 14 ed Auto 07:56 3 WBC 2.73 3.50-10 complet nRBC 017 [...] W Diff pnl,unspecified Bld (06-02-2016 04:25) Imm 0.01 0.00-0. complet Granulo 017 10*3/mm 03 ed cytes # 04:25 3 Bld Basophi 0.00 0.00-0. complet ls # 017 10*3/mm 20 ed Bld 04:25 3 Auto Eosinop 0.06 0.10-0. complet hil # 017 10*3/mm 30 ed Bld 04:25 3 Auto Monocyt 0.29 0.00-1. complet es # 017 10*3/mm 00 ed Bld 04:25 3 Auto Lymphoc 0.64 0.60-4. complet ytes # 017 10*3/mm 80 ed Bld 04:25 3 Auto Neutrop 06-02-2 1.73 1.50-8. complet hils # 017 10*3/mm 30 ed Bld 04:25 3 Auto Imm 2 0.4 % 0.0-0.6 complet Granulo 017 ed [...] CBC W Diff pnl,unspecified Bld (05-25-2016 15:45) MCV RBC 92.4 fL 80.0-99 complet Auto 017 .0 ed 15:45 Hct VFr 25.5 % 34.5-44 complet Bld 017 .0 ed Auto 15:45 Hgb 8.2 11.5-15 complet Bld-mCn 017 g/dL .5 ed c 15:45 RBC # 2.76 3.89-5. complet Bld 017 10*6/mm 14 ed Auto 15:45 3 WBC 13.49 3.50-10 complet nRBC 017 10*3/mm .80 ed cor # 15:45 3 Bld Imm 0.05 0.00-0. complet Granulo 017 10*3/mm 03 ed cytes # 15:45 3 Bld Basophi 0.00 0.00-0. complet ls # 017 10*3/mm 20 ed Bld 15:45 3 Auto Eosinop 0.00 0.10-0. complet hil # 017 10*3/mm 30 ed Bld 15:45 3 Auto MCHC 32.2 32.0-36 complet RBC 017 g/dL .0 ed Auto-mC 15:45 nc Monocyt 0.65 0.00-1. complet es # 017 10*3/mm 00 ed Bld 15:45 3 Auto Lymphoc 0.60 0.60-4. complet ytes # 017 10*3/mm 80 ed Bld 15:45 3 Auto Neutrop 12.19 1.50-8. complet hils # 017 10*3/mm 30 ed Bld 15:45 3 Auto Imm 19-2 0.4 % 0.0-0.6 complet Granulo 017 ed cytes 15:45 NFr Bld Basophi 05-25-2 0.0 % 0.0-1.0 complet ls NFr 017 ed Bld 15:45 Auto Eosinop 05-25-2 0.0 % 0.0-3.0 complet hil NFr 017 ed Bld 15:45 Auto Monocyt 2 4.8 % 0.0-12. complet es NFr 017 0 ed Bld 15:45 Auto Lymphoc 2 4.4 % 24.0-44 complet ytes 017 .0 ed NFr Bld 15:45 Auto Neutrop 05-25-2 90.4 % 41.0-71 complet hils 017 .0 ed NFr Bld 15:45 Auto Platele 464 150-450 complet t # Bld 017 10*3/mm ed Auto 15:45 3 PMV Bld 2 8.2 fL 6.0-12. complet Auto 017 0 ed 15:45 RDW RBC 73.2 fl 37.0-54 complet Auto 017 .0 ed 15:45 RDW RBC 05-25-2 22.3 % 11.3-14 complet 017 .5 ed Auto-Rt 15:45 o MCH RBC 29.7 pg 27.0-31 complet Qn 017 .0 ed Auto 15:45 Comp Metab 1998 Pnl SerPl (05-04-2016 10:09) Anion 8.0 3.0-11. [...] 016 mg/dL ed SerPl-m 10:09 Cnc ALP 05-04- 119 U/L 25-100 complet SerPl-c 016 ed [...] 016 mmol/L ed SerPl-s 10:09 Cnc Potassi 2 5.0 3.5-5.5 complet um 016 mmol/L ed Bld-sCn 10:09 c Sodium 136 132-146 complet Bld-sCn 016 mmol/L ed c 10:09 Creat 0.90 0.60-1. complet Bld-mCn 016 mg/dL 30 ed c 10:09 Glucose 05-04- 98 70-100 complet 016 mg/dL ed Bld-mCn 10:09 c BUN 05-04-2 17 9-23 complet Bld-mCn 016 mg/dL ed c 10:09 CBC W Diff pnl,unspecified Bld (05-04-2016 10:09) RBC # 05-04-2 3.21 3.89-5. complet Bld 016 10*6/mm 14 ed Auto 10:09 3 Imm 05-04-2 0.02 0.00-0. complet Granulo 016 10*3/mm 03 [...] 016 .5 ed Auto-Rt 10:09 o MCHC 05-04- 32.4 32.0-36 complet RBC 016 g/dL .0 ed Auto-mC 10:09 nc MCH RBC 05-04-2 28.7 pg 27.0-31 complet Qn 016 .0 [...] SerPl-m 016 g/dL ed Cnc 14:34 Calcium 12-08-2 9.8 8.7-10. complet 016 mg/dL 4 ed [...] g/dL .5 ed c 14:34 RBC # 3.57 3.89-5. complet Bld 016 10*6/mm 14 ed Auto 14:34 3 WBC 8.90 3.50-10 complet nRBC 016 10*3/mm .80 ed cor # 14:34 3 Bld Creat Bld-mCnc (03-23-2016 14:24) Creat 03-23-2 1.10 0.60-1. complet BldA-mC 016 mg/dL 30 [...] 016 mg/dL ed SerPl-m 13:50 Cnc ALP 83 U/L 25-100 complet SerPl-c 016 ed Cnc 13:50 AST 11-17-2 18 U/L 0-33 complet SerPl-c 016 ed Cnc 13:50 ALT 17-2 12 U/L 7-40 complet SerPl w 016 ed 13:50 P-5'-P- cCnc Albumin 17-2 3.60 3.20-4. complet 016 g/dL 80 ed SerPl-m 13:50 Cnc Prot 17-2 6.8 5.7-8.2 complet SerPl-m 016 g/dL ed Cnc 13:50 Calcium 17-2 10.5 8.7-10. complet 016 mg/dL 4 ed XXX-sCn 13:50 c CO2 17-2 28.0 20.0-31 complet SerPl-s 016 mmol/L .0 ed Cnc 13:50 Chlorid 03-23-2 96 99-109 complet e 016 mmol/L ed SerPl-s 13:50 Cnc Potassi 03-23-2 4.1 3.5-5.5 complet um 016 mmol/L ed Bld-sCn 13:50 c Sodium 03-23-2 130 132-146 complet Bld-sCn 016 mmol/L ed c 13:50 Creat 17-2 1.00 0.60-1. complet Bld-mCn 016 mg/dL 30 ed c 13:50 BUN 17-2 18 9-23 complet Bld-mCn 016 mg/dL ed c 13:50 Glucose 03-23-2 160 70-100 complet 016 mg/dL ed Bld-mCn 13:50 c CBC W Diff pnl,unspecified Bld (03-23-2016 13:50) Neutrop -17-2 11.30 1.50-8. complet hils # 016 10*3/mm 30 ed Bld 13:50 3 Auto Platele 17-2 397 150-450 complet t # Bld 016 10*3/mm ed Auto 13:50 3 PMV Bld 17-2 6.7 fL 6.0-12. complet Auto 016 0 ed 13:50 Lymphoc -17-2 0.80 0.60-4. complet ytes # 016 10*3/mm 80 ed Bld 13:50 3 Auto MCH RBC 03-23-2 27.3 pg 27.0-31 complet Qn 016 .0 ed Auto 13:50 MCV RBC 03-23-2 83.2 fL 80.0-99 complet Auto 016 .0 ed 13:50 RDW RBC 17-2 15.6 % 11.3-14 complet 016 .5 ed Auto-Rt 13:50 o Hct VFr 03-23-2 36.4 % 34.5-44 complet Bld 016 .0 ed Auto 13:50 Hgb 17-2 12.0 11.5-15 complet Bld-mCn 016 g/dL .5 ed c 13:50 RBC # 17-2 4.38 3.89-5. complet Bld 016 10*6/mm 14 ed Auto 13:50 3 WBC 17-2 12.40 3.50-10 complet nRBC 016 10*3/mm .80 ed cor # 13:50 3 Bld Monocyt 03-23-2 2.6 % 0.0-12. complet es NFr 016 0 ed Bld 13:50 Auto Lymphoc 03-23-2 6.6 % 24.0-44 complet ytes 016 .0 ed NFr Bld 13:50 Auto Neutrop 03-23-2 90.8 % 41.0-71 complet hils 016 .0 ed NFr Bld 13:50 Auto Monocyt 03-23-2 0.30 0.00-1. complet es # 016 10*3/mm 00 ed Bld 13:50 3 Auto MCHC 03-23-2 32.9 32.0-36 complet RBC 016 g/dL .0 [...] Code Location Performer Comment APPLICATI 93.54 Jarred [facility] Terry FIGUEREDO MD Encounters Encounter Start End Date Code Location Performer Type Date Emergency DEVON Stewart (ER) 3 14:45 3 16:28 [facility] Jarred Atkinson
--- OUTSIDE RECORDS SUMMARY | 2017-02-28 21:26 | External Medical Summary Rpt | CCD ---
Author Author , [facility]OC Organization [facility] Address Unknown Phone [email or web address] Providers Care Real Estate Operations Manager Name Role Phone Jarred Lara III, MD, Jarred Stewart III, MD Purpose Continuity of Care Document - 03-12-2013 through 2016 Problems Code Diagnosis DOS Provider Status 272.4 272.4 03-12-2013 [place] HYPERLIPIDE [facility] NEC/NOS Hospital 401.9 401.9 03-12-2013 [place] HYPERTENSIO [facility] N NOS Hospital 716.96 716.96 03-12-2013 [place] ARTHROPATHY [facility] NOS-L/LEG Hospital V43.65 V43.65 KNEE 03-12-2013 [place] JOINT [facility] REPLACEMENT Hospital STATUS V58.69 V58.69 OTH 03-12-2013 [place] MED,LT,[facility] ENT USE Hospital Allergies, Adverse Reactions, [...] 30 ed nc 14:53 Comment: Serial Number: [id number] [employer] Consultant: [id number] Comp Metab 1998 Pnl SerPl (06-15-2016 14:24) [...] Total Cells Counted Bld (06-03-2016 07:56) WBC [id number] Normal complet morph 017 01 ed Bld 07:56 Normal result SCT Plat [id number] Normal complet morph 017 01 ed Bld 07:56 Normal result SCT RBC [id number] Normal complet morph 017 01 ed Bld [...]
--- OUTSIDE RECORDS SUMMARY | 2017-02-28 21:27 | External Medical Summary Rpt | CCD ---
Demographics Preferred Language [place] Citizen Marital Status Unknown [place] Affiliation Unknown Race Unknown Ethnic Group Unknown Author Author , QUOC Organization [facility] Address Unknown Phone Immunization Unable to retrieve immunization data due to connection failure with Immunization Registry. Please try again later.
--- OUTSIDE RECORDS SUMMARY | 2017-02-28 21:27 | External Medical Summary Rpt ---
Author Author QUOC Andrade, QUOC Andrade Organization [employer] Address Unknown Phone Unavailable
--- OUTSIDE RECORDS SUMMARY | 2017-02-28 21:27 | External Medical Summary Rpt | CCD ---
Demographics Preferred Language [place] Marital Status Unknown [place] Affiliation Unknown Race Unknown Ethnic Group Unknown Author Author , [facility] Organization [facility] Address Unknown Phone Immunization Unable to retrieve immunization data due to connection failure with Immunization Registry. Please try again later.
[2017-02-28 21:39] LABS: HEMOGLOBIN 12.1 g/dL (12.2-16.2); LYMPH # 1.1 K/mm3 (0.7-4.5); LYMPH % 9.2 % (10-50.0)
[2017-02-28 22:01] LABS: BUN 31 mg/dL (7-18)
[2017-02-28 22:08] LABS: GFR (ESTIMATED) 33 ML/MIN (59-)
[2017-02-28 22:24] VITALS: BP 161/71
[2017-02-28 22:28] VITALS: BP 161/71
[2017-02-28 23:08] LABS: URINE BILIRUBIN - DIPSTICK NEGATIVE (NEG); URINE BLOOD NEGATIVE (NEG)
[2017-03-01] VITALS (15 sets, daily range): BP systolic 105–174; BP diastolic 43–79
[2017-03-01 03:17] LABS: NEUTROPHILS 93 % (42-76)
--- NOTE | 2017-03-01 04:53 | RADIOLOGY REPORT PS360 ---
[id number]-3 VIEWS HISTORY: Pain following injury FALL ORDERING PHYSICIAN: Justina Kellogg MD PATIENT AGE: 86 years COMPARISON: None FINDINGS: No fracture or dislocation. No lytic or blastic change. There is normal mineralization. The joint spaces are well-preserved. No significant degenerative/arthritic changes. No erosive changes evident. IMPRESSION: Negative, no acute finding
--- NOTE | 2017-03-01 04:59 | RADIOLOGY REPORT PS360 ---
HIP LT 2-3V W/PELVIS IF PERFOR HISTORY: Pain following injury FALL ORDERING PHYSICIAN: Justina Kellogg MD PATIENT AGE: 86 years COMPARISON: None FINDINGS: There is a minimally displaced fracture mild femoral neck. The fracture margins are somewhat ill defined especially along the femoral head component. While this may be related to projection, one cannot exclude an underlying pathologic fracture from lytic process. This is most prominent on the AP view of the pelvis. CT of the left hip may be of further value. There is no evidence of hip dislocation. IMPRESSION: 1. Nondisplaced fracture involving the left femoral neck with possible lytic component. While this may only be due to projection, one cannot exclude the possibility of a pathologic fracture. CT may be of further value.
--- NOTE | 2017-03-01 05:04 | RADIOLOGY REPORT PS360 ---
FEMUR-LT-2 VIEWS HISTORY: Pain following injury pain ORDERING PHYSICIAN: Alexandru Fontenot MD PATIENT AGE: 86 years COMPARISON: None FINDINGS: There is a minimally displaced left femoral neck fracture with possible lytic lesion at the femoral neck. The mid and distal aspect of the femur show no acute finding. There is been prior medial hemiarthroplasty. IMPRESSION: 1. Mildly displaced left femoral neck fracture with possible lytic lesion. 2. Mid and distal femur show no acute finding
--- NOTE | 2017-03-01 05:05 | RADIOLOGY REPORT PS360 ---
CHEST-AP VIEW ONLY HISTORY: Posttraumatic pain FALL ORDERING PHYSICIAN: Justina Kellogg MD PATIENT AGE: 86 years COMPARISON: 10/25/2016 FINDINGS: There is complete opacification of the right chest with some increased density noted centrally. Mediastinum is shifted toward the right. A central obstructing lesion is considered. CT chest with contrast may confirm. The aortic knob is somewhat prominent. Right hemidiaphragm is elevated. There are increased interstitial markings in the left lung with patchy infiltrate or atelectasis in the left lung base. No acute bony anomalies. IMPRESSION: 1. Opacified right hemithorax with mediastinal shift to the right consistent with central obstructing lesion/neoplasm with postobstructive pneumonitis. CT chest with contrast suggested for further evaluation. 2. Mild prominence of the interstitium in the left lung with left lower lobe atelectasis or infiltrate.o .
--- NOTE | 2017-03-01 07:30 | PHARMACY CLINIC NOTE ---
Patient Demographics Patient Demographics Admission date: 02/28/17 Date: 03/01/17 Time: 0730 Allergies Coded Allergies: No Known Drug Allergies (NKDA) (-- 03/01/17) HEIGHT- FT: 5 IN: 3.00 K.753 VTE General Information Labs: Laboratory Tests 02/28 2130 Coagulation PT (9.4 - 11.8 SECONDS) 9.9 INR (0.9 - 1.1) 0.92 APTT (23.6 - 34.0 SECONDS) 28.1 Hematology Hgb (12.2 - 16.2 g/dL) 12.1 L Hct (37.0 - 47.0 %) 37.0 Plt Count (142 - 424 K/mm3) 263 Disclaimer The following section includes nursing documentation that has been pulled in for pharmacy review. Patient's VTE score: 5 Patient's VTE Risk: LOW RISK Clinical trial participant? No VTE prophylaxis NQF [id number] VTE prophylaxis ordered? Yes Type of prophylaxis/treatment: PEPITO at 0730
[2017-03-01] MEDS ORDERED: OXYCODONE 5MG TA5 MG PO (08:26)
[2017-03-01] MEDS ORDERED: ONDANSETRON HYDR8 M1 PO (08:28)
[2017-03-01] MEDS ORDERED: ATIVAN1 MG PO (08:29)
[2017-03-01] MEDS ORDERED: TORSEMIDE10 MG PO (08:30)
[2017-03-01] MEDS ORDERED: LEADER MELATONIN5 MG PO (08:31)
[2017-03-01] MEDS ORDERED: SERTRALINE25 MG PO (08:32)
[2017-03-01] MEDS ORDERED: DOCUSATE SODIU100 MG PO (08:34)
[2017-03-01] MEDS ORDERED: OMEPRAZOLE20 MG PO (08:36)
--- NOTE | 2017-03-01 09:19 | HISTORY AND PHYSICAL REPORT ---
Demographics: Admit date: 03/01/17 Chief complaint: LEFT HIP PAIN PRIMARY DIAGNOSIS: LEFT HIP FRACTURE Allergies: Coded Allergies: No Known Drug Allergies (NKDA) (-- 03/01/17) History of present illness: History of present illness: 86 year old female who is followed by Hospice for stage 4 lung cancer presented to the ED with left hip pain s/p fall at home. Patient reports she was attempting to put her robe on when she lost her balance and fell landing on her left hip. In the ED, she was found to have a left hip fracture. CXR showed chronic changes. She is s/p radiation and chemotherapy. Denies h/o tobacco use. She reports HTN, no other CV history. She denies any exertional chest pain or palpitations. No LE edema. She has had general anesthesia in the past without complication. Patient was admitted to acute care for orthopedic evaluation and fracture repair. Past medical history: Family HX Diabetes No CAD Yes Hypertension Yes Hyperlipidemia Yes Cancer Yes TB No Immunization HX DT/Tetanus [id number] Flu THISFLUSEA Pneumonia Received In Past TB Test in last year No General CAD? No Angina: No AR: No Hypertension? Yes Hyperlipidemia? Yes CHF? No DVT? No PE? No COPD? No Asthma? No Anemia? No GERD? No Gastric ulcers? No GI Bleed? No Hernia? No Thyroid Problems? No Hypothyroidism? No CVA? No Seizures? No Diabetes? No Renal Insuffiency? No UTI? No Stones? No BPH? No GB Disease: Yes Nephritic Syndrome? No Asplenia? No Hepatitis? No Sickle Cell Disease? No Arthritis? No Migraines? No Cataracts? Yes Glaucoma? No MRSA? No HIV? No TB? No Anxiety? No Depression? No Cancer? Yes Site: LUNG CA Past Surgical HX Previous Surgery?Y TUBAL LIG Hysterect BLADDER TUCK Back. LEFT KNEE CATARACTS CHEMO/RADIATION 2014 Current home meds: Reported Medications OXYCODONE IR (Oxycodone IR) 5 MG PO Q4HP PRN PAIN #60 ONDANSETRON HCL (Ondansetron Hydrochloride) 8 MG PO QHS #30 Lorazepam (Ativan 1MG) 1 MG PO QHS #90 Torsemide 10 MG PO TUE/THUR Melatonin 5 MG PO QHS Sertraline Hcl (Sertraline HCl) 25 MG PO QHS #90 Docusate Sodium 100 MG PO DAILY Omeprazole (Omeprazole 20MG) 20 MG PO DAILY HYDROCHLOROTHIAZIDE (Hydrochlorothiazide) 25 MG PO DAILY Coenzyme Q10/Vitamin E (Co-Q10 300 Mg-3 Iu) 1 SGL PO DAILY MULTIVITAMIN (One Daily Multivitamin) 1 TAB PO DAILY Benazepril Hcl (Benazepril HCl) 20 MG PO DAILY #90 Social Hx: Smoking HX Tobacco No Type N/A Are you/the child exposed to second-hand smoke: No Alcohol Alcohol: No Hx of Drug Use Drug Use? No Patient's support system is excellent Review of systems: Constitutional No: no symptoms reported. Eyes No: no symptoms reported. Ears, Nose, Mouth, Throat No no symptoms reported Respiratory cough, shortness of breath, SOB with excertion. Cardiovascular No no symptoms reported Gastrointestinal/Abdominal No no symptoms reported Genitourinary No: no symptoms reported. Musculoskeletal see HPI. Skin No: no symptoms reported. Neurological No: no symptoms reported. Psychiatric No: no symptoms reported. Exam: Lab data for last 24 hours: Laboratory Tests 02/28/17 2205: Urine Color YELLOW, Urine Appearance CLEAR, Urine pH 7.5, Ur Specific [place] 1.015, Urine Protein NEGATIVE, Urine Ketones NEGATIVE, Urine Blood NEGATIVE, Urine Nitrate NEGATIVE, Urine Bilirubin NEGATIVE, Urine Urobilinogen 1.0, Ur Leukocyte Esterase NEGATIVE, Urine WBC 20-50, Urine Bacteria 4+, Urine Glucose NEGATIVE 02/28/17 2130: Sodium 135 L, Potassium 4.5, Chloride 99, Carbon Dioxide 31, BUN 31 H, Creatinine 1.5 H, Estimated Creat Clear 32 L, Estimated GFR (MDRD) 33 L, Glucose 114 H, Calcium 9.3, Total Bilirubin 0.3, AST 34, ALT 38, Alkaline Phosphatase 123 H, Creatine Kinase 35, CK-MB (CK-2) Rel Index 1.4, CK and CKMB Interp < 0.5, Troponin I < 0.02, Total Protein 6.7, Albumin 2.7 L, Globulin 4.0 H, Albumin/Globulin Ratio 0.7 L, PT 9.9, INR 0.92, APTT 28.1, WBC 11.5 H, RBC 4.09 L, Hgb 12.1 L, Hct 37.0, MCV 90.4, RDW 14.1, Plt Count 263, MPV 7.0 L, Gran % 86.6 H, Gran # 10.0 H, Total Counted 100, Lymphocytes % 9.2 L, Monocytes % 3.7, Eosinophils % 0.5, Basophils % 0.0 L, Neutrophils 93 H, Lymphocytes (Manual) 5 L, Lymphocytes # 1.1, Monocytes (Manual) 2, Monocytes # 0.4, Eosinophils # 0.1, Basophils # 0.0, Platelet Estimate NORMAL, Hypochromasia 1+, Anisocytosis 1+, PUBS MCHC 32.8, MCH 29.7 Microbiology 02/28 2205 URINE CATH: Urine Culture - RECD Admission vital signs: 1ST Vital Signs Result Date Time Pulse Ox 90 02/28 1919 B/P 165/103 02/28 1919 O2 Flow Rate 4 02/28 1919 Temp 98.3 02/28 1919 Pulse 85 02/28 1919 Resp 22 02/28 1919 O2 Delivery OXYGEN 02/28 2133 Exam General appearance: normal appearance, alert, active, awake Eyes: anicteric ENT: mucous membranes moist Neck: non-tender, no carotid bruit, no JVD Cardiovascular: normal sinus rhythm, regular rate & rhythm, no murmur, normal peripheral pulses, no peripheral edema Respiratory: rhonchi throughout all lung gaitan, good air movement ABD: non-distended, normal bowel sounds, no rebound, soft, no tenderness, no guarding Genitourinary: no dysuria, no hematuria Extremities: Knight's traction to LLE, pulses 2+, able to wiggle toes, sensation intact Musculoskeletal: sensation intact Skin: dry, intact, normal color Neuro: no deficit, normal mood/affect, oriented, speech clear Plan: Problem List 1. Closed intertrochanteric fracture of left hip 2. Fall 3. Lung cancer 4. HTN (hypertension) Plan: Patient is at higher than average surgical risk due to her lung cancer and compromised pulmonary status. She has no cardiac contraindications. Advise to give xopenex nebulizer treatment prior to surgery. Continue with xopenex and aggressive pulmonary toilet post-operatively. at 0918
--- NOTE | 2017-03-01 11:14 | RADIOLOGY REPORT PS360 ---
CT EXT.LOWER-LT-W/O CONTRAST INDICATION: Left hip fracture. Possible pathologic fracture. Evaluate for lytic lesion, extent of lytic lesion, and hip displacement. LEFT HIP FX ORDERING PHYSICIAN: Alexandru Fontenot MD PATIENT AGE: 86 years COMPARISON: Radiograph of the same day TECHNIQUE: Axial images are obtained without contrast. Sagittal and coronal reformatted images are reviewed as well. FINDINGS: There is a mildly displaced fracture involving the left femoral neck. The distal fracture fragment is displaced anteriorly x 14 mm with external rotation of the distal fracture fragment. There is indeed a lytic lesion involving the left femoral neck consistent with metastatic disease. This lesion measures approximately 2.7 x 2.3 cm.. There is diffuse osteopenia. No other fracture or bony destructive process evident. IMPRESSION: Displaced pathological fracture of the left hip as described above with lytic lesion of the femoral neck consistent with metastatic disease
[2017-03-01 12:46] LABS: ABO BLOOD TYPE O; RH BLOOD TYPE POSITIVE
--- NOTE | 2017-03-01 12:47 | CONSULT NOTE ---
Consultation findings: Referring physician: Dr. Fontenot Date of examination: 03/01/17 Time of examination: 1150 Exam findings: Reason for consultation: Fracture neck of femur, LEFT. Chief complaint: pain LEFT hip, status post fall Referring physician: Alexandru Fontenot M.D History of Present Illness: Ms. Pedro is a pleasant 86-year-old female, admitted last night as an acute inpatient from [facility] ER. I examined her on the floor and quite a few members of her family including her son was with her in the room. She is giving a history of fall while changing her clothes yesterday evening at home. She says she could not get her foot in the right place and lost her balance in the process and fell landing on her left hip. She has history of stage IV lung cancer and is being followed by Hospice. Following the fall she had severe left hip pain and could not weight-bear or walk. Evaluation in the ED including x-ray showed a displaced subcapital femoral neck fracture on the left side. The x-rays were also suspicious for metastatic lesion in the femoral neck. She says she has minimal discomfort at rest and the LEFT hip pain is worse with attempted movements of the leg. She denies any other injuries including head injury, neck injury, back injury, chest or abdominal injury. She complained of some discomfort in her left shoulder in the ER but x-rays were negative. No numbness or tingling. No history of any dizziness, headache, chest or neck pain. She lives by herself and usually walks with a cane. She gets home help. She denies loss of consciousness, chest pain and shortness of breath. As mentioned above, she has history of lung cancer and is s/p radiation and chemotherapy. Denies any tobacco use. She reports HTN, no known other cardiac problems. She has had general anesthesia in the past without complication. She was seen by Dr. Fontenot this morning and is cleared for surgery with appropriate risk stratification. Past medical history: Family HX Diabetes No CAD Yes Hypertension Yes Hyperlipidemia Yes Cancer Yes TB No Immunization HX DT/Tetanus [id number] Flu THISFLUSEA Pneumonia Received In Past TB Test in last year No General CAD? No Angina: No NV: No Hypertension? Yes Hyperlipidemia? Yes CHF? No DVT? No PE? No COPD? No Asthma? No Anemia? No GERD? No Gastric ulcers? No GI Bleed? No Hernia? No Thyroid Problems? No Hypothyroidism? No CVA? No Seizures? No Diabetes? No Renal Insuffiency? No UTI? No Stones? No BPH? No GB Disease: Yes Nephritic Syndrome? No Asplenia? No Hepatitis? No Sickle Cell Disease? No Arthritis? No Migraines? No Cataracts? Yes Glaucoma? No MRSA? No HIV? No TB? No Anxiety? No Depression? No Cancer? Yes Site: LUNG CA Past Surgical HX Previous Surgery?Y TUBAL LIG Hysterect BLADDER TUCK Back. LEFT KNEE CATARACTS CHEMO/RADIATION 2015 Current home meds: Reported Medications OXYCODONE IR (Oxycodone IR) 5 MG PO Q4HP PRN PAIN #60 ONDANSETRON HCL (Ondansetron Hydrochloride) 8 MG PO QHS #30 Lorazepam (Ativan 1MG) 1 MG PO QHS #90 Torsemide 10 MG PO TUE/THUR Melatonin 5 MG PO QHS Sertraline Hcl (Sertraline HCl) 25 MG PO QHS #90 Docusate Sodium 100 MG PO DAILY Omeprazole (Omeprazole 20MG) 20 MG PO DAILY HYDROCHLOROTHIAZIDE (Hydrochlorothiazide) 25 MG PO DAILY Coenzyme Q10/Vitamin E (Co-Q10 300 Mg-3 Iu) 1 SGL PO DAILY MULTIVITAMIN (One Daily Multivitamin) 1 TAB PO DAILY Benazepril Hcl (Benazepril HCl) 20 MG PO DAILY #90 Social Hx: Smoking HX Tobacco No Type N/A Are you/the child exposed to second-hand smoke: No Alcohol Alcohol: No Hx of Drug Use Drug Use? No Patient's support system is excellent Review of systems: Constitutional No: no symptoms reported. Eyes No: no symptoms reported. Ears, Nose, Mouth, Throat No no symptoms reported Respiratory cough, shortness of breath, SOB with excertion. Cardiovascular No no symptoms reported Gastrointestinal/Abdominal No no symptoms reported Genitourinary No: no symptoms reported. Musculoskeletal see HPI. Skin No: no symptoms reported. Neurological No: no symptoms reported. Psychiatric No: no symptoms reported. Exam: Lab data for last 24 hours: Laboratory Tests 02/28/17 2205: Urine Color YELLOW, Urine Appearance CLEAR, Urine pH 7.5, Ur Specific [place] 1.015, Urine Protein NEGATIVE, Urine Ketones NEGATIVE, Urine Blood NEGATIVE, Urine Nitrate NEGATIVE, Urine Bilirubin NEGATIVE, Urine Urobilinogen 1.0, Ur Leukocyte Esterase NEGATIVE, Urine WBC 20-50, Urine Bacteria 4+, Urine Glucose NEGATIVE 02/28/172129: Sodium 135 L, Potassium 4.5, Chloride 99, Carbon Dioxide 31, BUN 31 H, Creatinine 1.5 H, Estimated Creat Clear 32 L, Estimated GFR (MDRD) 33 L, Glucose 114 H, Calcium 9.3, Total Bilirubin 0.3, AST 34, ALT 38, Alkaline Phosphatase 123 H, Creatine Kinase 35, CK-MB (CK-2) Rel Index 1.4, CK and CKMB Interp < 0.5, Troponin I < 0.02, Total Protein 6.7, Albumin 2.7 L, Globulin 4.0 H, Albumin/Globulin Ratio 0.7 L, PT 9.9, INR 0.92, APTT 28.1, WBC 11.5 H, RBC 4.09 L, Hgb 12.1 L, Hct 37.0, MCV 90.4, RDW 14.1, Plt Count 263, MPV 7.0 L, Gran % 86.6 H, Gran # 10.0 H, Total Counted 100, Lymphocytes % 9.2 L, Monocytes % 3.7, Eosinophils % 0.5, Basophils % 0.0 L, Neutrophils 93 H, Lymphocytes (Manual) 5 L, Lymphocytes # 1.1, Monocytes (Manual) 2, Monocytes # 0.4, Eosinophils # 0.1, Basophils # 0.0, Platelet Estimate NORMAL, Hypochromasia 1+, Anisocytosis 1+, PUBS MCHC 32.8, MCH 29.7 Microbiology 02/28 2205 URINE CATH: Urine Culture - RECD Admission vital signs: 1ST Vital Signs Result Date Time Pulse Ox 90 02/28 1919 B/P 165/103 02/28 1919 O2 Flow Rate 4 02/28 1919 Temp 98.3 02/28 1919 Pulse 85 02/28 1919 Resp 22 02/28 1919 O2 Delivery OXYGEN 02/28 2133 Exam General appearance: normal appearance, alert, active, awake Eyes: anicteric ENT: mucous membranes moist Neck: non-tender, no carotid bruit, no JVD Cardiovascular: normal sinus rhythm, regular rate & rhythm, no murmur, normal peripheral pulses, no peripheral edema Respiratory: rhonchi throughout all lung gaitan, good air movement ABD: non-distended, normal bowel sounds, no rebound, soft, no tenderness, no guarding Skin: dry, intact, normal color Neuro: no deficit, normal mood/affect, oriented, speech clear Extremities: On examination of her lower extremities, she is in a Knight's traction to the left leg. There is shortening of the LEFT leg and the foot is externally rotated. On examination of the LEFT hip the skin is normal. No rashes or lesions noted. She is tender over the LEFT hip. Any attempted movements of the LEFT hip are painful. Thigh and calf are soft and nontender. Dorsalis pedis and posterior tibial pulses are palpable 2+ bilaterally. Sensation is grossly intact. She has good range of foot, ankle and toe movements. Examination of both upper extremities is within normal limits. Imaging: X-rays of her pelvis/LEFT hip and LEFT femur multiple views were reviewed along with the radiologist's report. The x-rays show a displaced intracapsular fracture neck of LEFT femur. Lytic lesion noted in the femoral neck suspicious for metastasis. There is a degree of osteopenia noted. CT scan of her pelvis/left hip again confirmed the displaced intracapsular femoral neck fracture with a lytic lesion confined to this area. I have discussed the images including both x-rays and CT scan with Dr. Art, radiologist. He does not think there are any other suspicious lesions elsewhere in the pelvis, opposite hip or the left femur. Impression: 1. Closed displaced, subcapital fracture neck of femur, left hip 2. Lytic lesion left femoral neck, suspicious for bony metastasis 3. Mechanical fall 4. Lung cancer 5. HTN (hypertension) Recommendations: I reviewed the clinical and imaging findings with the patient and her family including son who were with her in the room. I have discussed the diagnosis and management options in detail including both nonsurgical and surgical. I have recommended surgical remediation in the form of a hemiarthroplasty LEFT hip. I have discussed about the suspicious lytic lesion in the femoral neck which is very likely to represent a bony metastasis. I have discussed about the possible use of a cemented stem because of this. I explained the procedure, risks and benefits, alternatives and the expected postoperative course. I have shown them copies of her x-rays and explained to the patient and her family with drawings of the fracture and the proposed surgical procedure. The complications discussed include but are not limited to infection, injury to nerves and blood vessels, DVT and PE, femur fracture, limb length inequality, dislocation, implant failure , loosening, acetabular wear, osteolysis, periprosthetic femur fracture, heterotopic ossification, abductor weakness and a limp, incomplete relief of pain, incomplete return of function or motion, likely need for further surgery in future including revision, anesthetic/medical complications including heart attack, stroke, transfusion reactions and even . We discussed how any of these events can be devastating. We have discussed nonsurgical alternatives as well. I've explained that the patient is at a significant surgical risk due to her age, medical issues, and fragility of the bone. Family and patient seemed to understand and accept these risks. We have discussed nonsurgical alternatives as well. The nonoperative management would essentially consist of prolonged bed rest and traction (skeletal/skin) in bed and pain medication and has exceptionally poor outcome. This could result in nonunion and malunion of the fracture and almost certainly, the patient has a very high risk of decubitus ulcers, UTI, respiratory tract infections, DVT/PE and other complications from being bedridden. I have explained to them that the standard of care for this sort of injuries is surgical throughout the country unless the patient is very ill for surgical management. We also discussed the postoperative course including the rehab and physical therapy required. She lives by herself and may need to go to a short-term rehab place after surgery. All their questions were answered and they verbalized a good understanding. She has been cleared by Dr. Fontenot for surgery with appropriate risk stratification. I have recommended- Type and screen Nothing by mouth Continue IV fluids DVT prophylaxis as per protocol Analgesia as needed Consent patient for a hemiarthroplasty LEFT hip. Order 2 g of IV Ancef for preoperative prophylaxis to start half an hour before surgery. I am planning to take her for surgery at the earliest opportunity today. Thank you for the opportunity to take part in the care of this very pleasant patient.
--- NOTE | 2017-03-01 17:13 | Anesthesia Record ---
Anesthesia Record Part I Total IV fluids: 2000 EBL (ml): 200 Urine Output: 300 B/P: 126/76 % SaO2: 79 Pulse: 91 Resps: 14 Temp: 97.4 Patient is: Awake, Stable Stable to PACU at: 1700 at 1714
--- NOTE | 2017-03-01 17:14 | Anesthesia Record ---
Anesthesia Record Part II Discharge time: 173 Destination: Second Floor PACU nurse assessment review? Yes Patient is: Awake, Stable Anesthesia complications? No at 1714
--- NOTE | 2017-03-01 17:30 | Operative Note ---
Procedure/Operative Record Date of Procedure: 03/01/17 Referring physician: Dr. Fontenot Pre-op diagnosis: 1. Closed, displaced, fracture neck of femur, left hip 2. Lytic lesion femoral neck, left Post-op diagnosis: 1. Closed, displaced, fracture neck of femur, left hip Procedure performed: Cemented bipolar hemiarthroplasty, left hip Surgeon: Max Benavides MD Cafeteria Director(s): Ange Thakur Anesthesia: Spinal Indications: Patient is an 86-year-old female who sustained a displaced intracapsular fracture neck of LEFT femur following a mechanical fall. She has history of advanced lung cancer and imaging is suspicious for metastatic lesion in the femoral neck. A hemiarthroplasty was indicated to relieve pain and restore function. The operation is indicated and is the standard of care for this type of fracture. Findings: Displaced sub capital femoral neck fracture of the LEFT hip as noted on the preoperative hip imaging. The articular cartilage of the acetabulum is well maintained without evidence of any significant arthritis. The proximal femur bone quality was pretty/reasonably good. Description of procedure: On the day of the procedure the patient and family were met on the floor, and a physical examination was performed. The operating side and site were marked and initialed by me. I reviewed the diagnosis, natural history and management options in detail including both the nonsurgical and surgical. Given the nature of the fracture, I have recommended surgery in the form of a cemented bipolar hemiarthroplasty of the LEFT hip. I discussed the procedure, risks and benefits, alternatives, potential complications and expected outcomes with the patient and her family. The complications discussed include but are not limited to infection , injury to nerves and blood vessels, DVT and PE, femur fracture, limb length inequality, dislocation, implant failure, loosening, acetabular wear, osteolysis , periprosthetic femur fracture, heterotopic ossification, abductor weakness and a limp, incomplete relief of pain, incomplete return of function or motion, likely need for further surgery in future including revision, anesthetic/medical complications including heart attack, stroke, transfusion reactions and even . We discussed how any of these events can be devastating. We have discussed nonsurgical alternatives as well. We also discussed the postoperative course including the rehab and physical therapy required. The consent form was reviewed and signed. The patient was brought to the operating room and a spinal anesthesia was administered by the pond tender. The patient was then transferred onto the operating table and positioned in the RIGHT lateral decubitus position with the LEFT hip facing upwards. All the bony prominences were well-padded. The LEFT lower extremity was then prepped and draped in the usual sterile fashion. The entire operative team used isolation suits and room traffic was controlled. The surgical landmarks and incision was marked over the skin with a marking pen. Ioban sterile drape was used to cover the operative site and isolate the perineum completely from the operative field. Administration of 2 g of prophylactic IV Ancef was confirmed with the anesthetic team. A preprocedure timeout was performed as per hospital protocol. A posterior approach was used to the hip joint. An electrocautery was used for hemostasis. The skin incision was made centering over the posterior border of the greater trochanter extending posteriorly in a curvilinear fashion across the buttock. The dissection was carried through subcutaneous tissue down to the fascia crescencio. The fascia crescencio and gluteus fascia were split and a Charnley retractor was placed. The trochanteric bursa was then removed with blunt dissection. The sciatic nerve was identified and kept out of the harm's way throughout the rest of the procedure. The hip was then internally rotated and the fat over the external rotators was cleared with a sponge. The short external rotator muscles were identified, a tag stitch was placed near their insertion, and they were divided close to the greater trochanter with electrocautery. This exposed the joint capsule which was opened with a T shaped incision and tag stitches were applied to both the leaves of the capsule. Upon entering the joint capsule, a fracture hematoma was noted as well as the displaced sub-capital femoral neck fracture. A corkscrew was then used to remove the femoral head from the acetabulum and passed to the bottom scrubber to be sized on the back table. It measured 45 mm. All bony fragments were then removed from the acetabulum and surrounding soft tissue. The acetabulum was then inspected and found to be clear. The articular cartilage was noted to be well maintained without any significant arthritic changes. Our attention was then turned to the preparation of proximal femur where a cutting guide was used to saad the neck for the femoral neck cut. Given the presence of a lytic lesion in the femoral neck suspicious for metastatic deposit, we have decided to use a cemented femoral stem. An oscillating saw was then used to finish the femoral cut. The femoral head and osteotomized neck were sent for histopathologic examination labeled as femoral head. A box osteotome was then used to remove the bone from the proximal femur. The bone which was removed with the box osteotome was sent for histopathologic examination as a separate specimen labeling it as bone from the distal femoral neck. A canal entry reamer was then used to open the femoral canal followed by a lateralizer paying close attention to keep the reamer in a lateral position. Next we performed femoral broaching starting with a small broach, making efforts to lateralize the broach. The broaching was continued sequentially up to size 4 broach. We found this to be a very good fit. We then used the calcar reamer to finish the femoral preparation. We then performed a trial reduction using the size 4 broach, +0 neck and 45 mm bipolar head. The hip was taken through range of motion and tested in adduction, internal and external rotation as well as with a shuck and posteriorly directed force on a flexed hip. It was noted that the hip was very stable with these trial components throughout the range of motion. We also noted that the limb lengths were equal with these components. Next, the trial components were removed and the femur and acetabulum were irrigated with pulse lavage and suctioned out. We placed a small femoral cement restrictor at appropriate depth. After thoroughly irrigating and drying the femoral canal, we introduced the cement (Simplex HV with Gentamicin ) with the cement gun using the guest services attendant. Then a size 4 Gus accolade 132 degree cemented femoral stem with a size 12 distal spacer was introduced and seated to the appropriate level. Pressure was maintained until the cement is completely set. We then irrigated and dried the Boudreaux taper and placed the definitive 45 mm bipolar femoral head assembly with a +0 offset on the stem and tapped into place. The hip was then reduced and again taken through range of motion and noted to be stable. The limb length was also well corrected. The hip joint was then soaked with dilute Betadine solution for 3 minutes, then suctioned out and irrigated with normal saline pulse lavage. We confirmed good hemostasis and then proceeded to close the wound. The capsule was closed with interrupted #1 Vicryl sutures followed by reattachment of the external rotators to the greater trochanter with #1 Vicryl sutures. Next the fascia crescencio and the gluteus fascia were closed with #1 Vicryl sutures. The wound was then again irrigated copiously with pulse lavage and suctioned dry. Next the subcutaneous tissues were closed with 2-0 Vicryl sutures. The skin was closed with 4-0 Monocryl subcuticular sutures, Dermabond and Steri-Strips. The skin and subcutaneous tissue were infiltrated with 30 mL of 0.5 percent Marcaine for postoperative analgesia. Sterile dressings were applied consisting of Xeroform, 4 x 4 and ABDs as well as adhesive tape. No drains were placed. The patient was then transferred from the operating table onto the bed. The leg lengths were again checked in supine position and noted to be equal. An abduction pillow was placed between the legs. The patient was then reversed from the anesthetic and transported to the postoperative recovery area in a stable condition. She tolerated the procedure well and there were no immediate complications. Swab, needle and instrument counts were correct according to the scrub team at the end of the procedure. Portable X-rays of the LEFT hip AP and lateral views were obtained in the recovery area and noted to be satisfactory. Postoperatively, continue standard precautions for a posterior hip approach. To mobilize weightbearing as tolerated with the help of a walker by physical therapist and to commence standard physical therapy and precautions for a posterior hip approach. EBL (ml): 200 Implant: [place] Accolade C 132 cemented hip system- 132 degree neck angle, V 40, size 4 , 35 mm x 137 mm hip stem [place] UHR universal head bipolar component- 45 mm outer diameter/28 mm inner diameter Gus LFIT V40 femoral head, 28 mm outer diameter, +0 mm offset [place] Accolade C distal spacer- size- medium, outer diameter 12 mm Simplex HV with gentamicin bone cement 2 Small cement restrictor ([employer] bio prep) (Industry sales representative facility services: Raimundo Presley from [employer]) Complications: None Specimens: Femoral head and neck for histopathologic examination
[2017-03-01 19:53] LABS: ALLEN'S TEST ACCEPTABLE; ARTERIAL ABE 0.4 MMOL/L (-2.4-+2.3); OXYGEN 70%
[2017-03-02] VITALS (21 sets, daily range): BP systolic 114–168; BP diastolic 48–88
[2017-03-02 06:08] LABS: LYMPH # 1.3 K/mm3 (0.7-4.5); LYMPH % 9.5 % (10-50.0)
--- NOTE | 2017-03-02 06:13 | RADIOLOGY REPORT PS360 ---
HIP LT 2-3V W/PELVIS IF PERFOR HISTORY: Follow-up. Hip Replacement LEFT HIP HEMIARTHROPLASTY POST OP ORDERING PHYSICIAN: Alexandru Fontenot MD PATIENT AGE: 86 years COMPARISON: Same day preop exam FINDINGS: 2 views of the left hip show interval placement of a bipolar prosthesis in good alignment without evidence of orthopedic complications. Postsurgical gas and bone cement present. IMPRESSION: Status post hip replacement with good alignment
--- NOTE | 2017-03-02 07:51 | ACUTE CARE PROGRESS NOTE (QUA) ---
Progress Notes Subjective Date 03/02/17 Time 0749 Note Operating Room notes reviewed. Patient was initially alert and awake in PACU but became somewhat hypoxic but responded well to BiPAP overnight. This morning she is on BiPAP, is alert, awake and oriented 3. She does complain of some pressure and discomfort from the BiPAP mask. Lungs have rhonchi but no significant crackles-essentially the same as her preoperative exam but difficult because of her lung cancer problems. Heart rate regular. Abdomen is soft. Distal extremities look good with no edema. Good pulses. Objective Findings Last VS-Temp:98.3 B/P:134/79 Pulse:102 Resp:20 SaO2:90 OXYGEN Last weight lbs:171 oz:3 K.649 Method:Bed Scales Assessment/Plan Problem List 1. Closed intertrochanteric fracture of left hip Qualifiers: Encounter type: initial encounter Fracture alignment: nondisplaced Qualified Code: S72.145A - Nondisplaced intertrochanteric fracture of left femur, initial encounter for closed fracture 2. Fall Qualifiers: Encounter type: initial encounter Qualified Code: W19.XXXA - Unspecified fall, initial encounter 3. Lung cancer Qualifiers: Laterality: right Lung location: unspecified part of lung Qualified Code: C34.91 - Malignant neoplasm of unspecified part of right bronchus or lung 4. HTN (hypertension) 5. Respiratory insufficiency Patient condition Stable Plan: continue current care, Lasix today to see if this will help pulmonary mechanics. Continue BiPAP weaning as tolerated. This inpt stay is expected to cross 2 MNs from start of care Yes at 0750
--- NOTE | 2017-03-02 09:13 | ACUTE CARE PROGRESS NOTE ---
Progress note Date: 03/02/17 Assessment: Subjective data: Patient is an 86-year-old female. She is status post left hip cemented bipolar hemiarthroplasty, post op day # 1. She is lying down on the bed and appears comfortable. She has a BiPAP mask on her face. She says she is doing well and her pain is well controlled. No history of any nausea, vomiting or chest pain. Objective: Reviewed the vital signs, labs, medication, medical progress note and discussed with the nursing staff. Exam General appearance: alert, awake, no acute distress Neck: normal inspection Cardiovascular: normal sinus rhythm, regular rate & rhythm Respiratory: Rhonchi on the left side, decreased breath sounds on the right side ABD: non-distended, normal bowel sounds, soft, no tenderness, no organomegaly Genitourinary: catheter in place Skin: dry, intact On examination of her left lower extremity, she has abduction pillow in between the legs. The alignment is neutral. The dressings over the left hip are clean, dry and intact. Her thigh and calf are soft and nontender. Distal neurovascular status is intact. Her postoperative hip x-rays are satisfactory. Impression: 1. Fall Qualifiers Encounter type: initial encounter Qualified Code: W19.XXXA - Unspecified fall, initial encounter 2. Lung cancer Qualifiers Laterality: right Lung location: unspecified part of lung Qualified Code: C34.91 - Malignant neoplasm of unspecified part of right bronchus or lung 3. HTN (hypertension) 4. Respiratory insufficiency 5. Subcapital fracture of neck of left femur Status: Acute Onset Date: 02/28/17 Qualifiers Fracture type: closed 6. Lytic bone lesion of left femur Plan: I reviewed her vital signs, lab results, nursing notes, medical progress notes, medication and also discussed with the nursing staff regarding her progress. Physical therapy to commence mobilization weightbearing as tolerated with the walker. Use abduction pillow when in bed and continue using this for 6 weeks postop. Continue standard precautions for posterior approach to the hip joint. Continue DVT prophylaxis for 5 weeks. Postoperative dressings to be changed on the second postop day. Medical management as per Dr. Fontenot's team. Antibiotic Stewardship (2) Current Culture Results Microbiology 02/282 URINE CATH: Urine Culture - COMP ESCHERICHIA COLI
--- NOTE | 2017-03-02 12:16 | CONSULT NOTE ---
Standard Demographics Patient Demo Date of Consultation: 03/02/17 Referring Provider: Alexandru Fontenot MD Reason for Consultation: Sinus Tachycardia PRIMARY DIAGNOSIS: LEFT HIP FRACTURE Problem list Problem list: 1. Hypertension 2. Hyperlipidemia 3. Stage IV lung cancer, diagnosed in 2014, status post chemotherapy and radiation with the last dose of oral chemotherapy therapy in April 2016. A. Patient currently in hospice. 4. Status post surgical repair of traumatic LEFT hip fracture, 02/2017. History of present illness: History of present illness: 86 year old female who is followed by Hospice for stage 4 lung cancer presented to the ED with left hip pain s/p fall at home. Patient reports she was attempting to put her robe on when she lost her balance and fell landing on her left hip. In the ED, she was found to have a left hip fracture. CXR showed chronic changes. She is s/p radiation and chemotherapy. Denies h/o tobacco use. She reports HTN, no other CV history. She denies any exertional chest pain or palpitations. No LE edema. She has had general anesthesia in the past without complication. Patient was admitted to acute care for orthopedic evaluation and fracture repair. The above per Dr. Fontenot. Cardiology consulted 03/02/2017 for onset of sinus tachycardia at 150 bpm. Patient denies any chest pain. She is on BiPAP currently. Telemetry strips reveal sinus tachycardia rate of 150 bpm. Electrocardiogram shows sinus tachycardia at [address] segment abnormalities with concern for ischemic or strain pattern. Patient has received one dose of IV digoxin 0.25 mg. Sinus tachycardia has improved from 150 bpm to around 100 bpm time of my assessment. Past Medical History: General: Hypertension Yes CVA No Seizures No TB No COPD No Asthma No Diabetes No Angina No NC No Hyperlipidemia Yes Urinary No Cancer Yes Rheumatic H.D. No Ulcers No MRSA No GB Disease Yes Past Surgical HX: Previous Surgery?Y TUBAL LIG Hysterect BLADDER TUCK Back. LEFT KNEE CATARACTS CHEMO/RADIATION 2014 Allergies Coded Allergies: No Known Drug Allergies (NKDA) (-- 03/01/17) Home medications: Reported Medications OXYCODONE IR (Oxycodone IR) 5 MG PO Q4HP PRN PAIN #60 ONDANSETRON HCL (Ondansetron Hydrochloride) 8 MG PO QHS #30 Lorazepam (Ativan 1MG) 1 MG PO QHS #90 Torsemide 10 MG PO TUE/THUR Melatonin 5 MG PO QHS Sertraline Hcl (Sertraline HCl) 25 MG PO QHS #90 Docusate Sodium 100 MG PO DAILY Omeprazole (Omeprazole 20MG) 20 MG PO DAILY HYDROCHLOROTHIAZIDE (Hydrochlorothiazide) 25 MG PO DAILY Coenzyme Q10/Vitamin E (Co-Q10 300 Mg-3 Iu) 1 SGL PO DAILY MULTIVITAMIN (One Daily Multivitamin) 1 TAB PO DAILY Benazepril Hcl (Benazepril HCl) 20 MG PO DAILY #90 Current Medications: Current Medications Digoxin 0.25 MG ONCE ONE IV (DC) Digoxin 0 .STK-MED ONE .ROUTE (DC) Enoxaparin Sodium 30 MG Q12 SC Furosemide 0 .STK-MED ONE .ROUTE (DC) Furosemide 80 MG ONCE ONE IV (DC) Sodium Chloride 10 ML PRN PRN IV Cefazolin Sodium 0 .STK-MED ONE .ROUTE (DC) Sodium Chloride 50 ML .STK-MED ONE IV (DC) Lorazepam 1 MG QHS PO Lorazepam 0 .STK-MED ONE .ROUTE (DC) Morphine Sulfate 0 .STK-MED ONE .ROUTE (DC) Furosemide 40 MG ONCE ONE IV (DC) Furosemide 0 .STK-MED ONE .ROUTE (DC) Furosemide 0 .STK-MED ONE .ROUTE (DC) Cefazolin Sodium 1 GM Q8H IV (DC) Sodium Chloride 50 ML Hydrocodone Bitart/Acetaminophen 1 TAB Q4HP PRN PO Hydrocodone Bitart/Acetaminophen 2 TAB Q4HP PRN PO Lactated Ringer's 1,000 ML .[id number] IV Promethazine HCl 12.5 MG Q6HP PRN IV Senna/Docusate Sodium 1 TAB BIDP PRN PO Sodium Chloride 25 ML PRN PRN IV Lactated Ringer's 1,000 ML .Q25H IV (DC) Meperidine HCl 12.5 MG [id number] PRN IV (DC) Meperidine HCl 25 MG [id number] PRN IV (DC) Ondansetron HCl 4 MG Q4HP PRN IV (DC) Cefazolin Sodium 0 .STK-MED ONE .ROUTE (DC) Ephedrine Sulfate 0 .STK-MED ONE .ROUTE (DC) Cefazolin Sodium 2 GM PRE-OP ONE IV (DC) Sodium Chloride 100 ML Tetracaine HCl 0 .STK-MED ONE IJ (DC) Ketamine HCl 0 .STK-MED ONE .ROUTE (DC) Midazolam HCl 0 .STK-MED ONE .ROUTE (DC) Levalbuterol HCl 0.63 MG TIDRT INH Morphine Sulfate 4 MG Q4HP PRN IV Ondansetron HCl 4 MG Q4HP PRN IV Sodium Chloride 1,000 ML .Q20H IV Sodium Chloride 10 ML PRN PRN IV (DC) Immunization HX DT/Tetanus [id number] Flu [id number] FLU SEASON Pneumonia RECEIVED IN PAST TB Test in last year No Family history Family HX Family Hx Insignificant No Diabetes No CAD Yes Hypertension Yes Hyperlipidemia Yes Cancer Yes TB No Social Hx: Smoking HX Tobacco No Type N/A Are you/the child exposed to second-hand smoke: No Alcohol Alcohol: No Hx of Drug Use Drug Use? No Review of systems: Constitutional weakness. Respiratory shortness of breath. Cardiovascular see HPI Gastrointestinal/Abdominal No no symptoms reported Genitourinary No: no symptoms reported. Musculoskeletal No: no symptoms reported. Neurological No: no symptoms reported. Exam: Admission Vital Signs: 1ST Vital Signs Result Date Time Pulse Ox 90 02/28 1919 B/P 165/103 02/28 1919 O2 Flow Rate 4 02/28 1919 Temp 98.3 02/28 1919 Pulse 85 02/28 1919 Resp 22 02/28 1919 O2 Delivery OXYGEN 02/28 2133 Last Vital Signs: Vital Signs Result Date Time Pulse Ox 92 03/02 1200 B/P 151/68 03/02 1200 O2 Delivery OXYGEN 03/02 1200 Temp 98.1 03/02 1200 Pulse 109 03/02 1200 Resp 20 03/02 1200 O2 Flow Rate 15 03/02 1135 Exam General appearance: alert, awake Cardiovascular: at the time of my exam the patient's heart rate has improved to about 103 bpm with no appreciable murmur, gallop or rub. Respiratory: diminished breath sounds ABD: soft, no tenderness Extremities: moves all Neuro: alert Plan: Assessment: 1. Sinus tachycardia, etiology uncertain but with differential diagnosis to include reactionary from dehydration, surgery and lung disease with hypoxia. Also, concern for pulmonary embolus in the setting of recent surgery and patient with stage IV lung cancer. Patient is now a DNR. Discussion regarding possible causes for sinus tachycardia and treatment was undertaken with daughter and she requested only conservative treatment. Echo was very difficult study and of little diagnostic help. 2. Status post surgical repair of LEFT hip fracture after fall 3. HTN 4. CKD stage 3 with BUN 36, Cr 1.8 5. Hypoxia Recommendations: 1. Lopressor 12.5 mg BID 2. Hold lasix for now. 3. check BNP to assess for CHF 4. No further cardiac workup. at 8204
--- NOTE | 2017-03-02 13:34 | RADIOLOGY REPORT PS360 ---
PROCEDURE: 2-D M-mode and color Doppler study INDICATIONS FOR THE TEST: Chest pain COPD Heart Murmur Tobacco Smoking Palpitations Fatigue Syncope Edema Hypertension+Diabetes Mellitus Rheumatic Fever SOB CULVER Obesity Hyperlipidemia Family History HD Additional History SVT, STAGE 4 LUNG CA, HOSPICE PT, DNR, BIPAP, FX HIP, FLAT ON BACK, VERY LIMITED IMAGES PATIENT INFORMATION HEIGHT: 63 WEIGHT:171 GENDER: Female B/P:134/79 2-D/M-MODE INTERPRETATION: 2-D MEASUREMENTS OBSERVED VALUES IN CMS Right Ventricular Dimension (RVDd) Interventricular Septum (Thickness)(IVsd) Left Ventricular Internal Dimensions(LVIDd) Left Ventricular Posterior Wall (Thickness)(LVPWd) Aortic Root Aortic Cusp Separation Left Atrial Dimensions (LAD) 2D 1. Technically very difficult study because of the patient's factor and poor acoustic windows, endocardial surfaces and valvular structures are not well visualized. 2. Probably preserved left ventricular systolic function 3. The right-sided cardiac chamber as well as the valvular structures are not well visualized 4. There is no significant pericardial effusion noted DOPPLER INTERROGATION: Doppler interrogation is suboptimal CONCLUSION: Technically difficult study because of the patient's factor and poor acoustic windows Probably preserved left ventricular systolic function.
[2017-03-02 14:34] LABS: ALLEN'S TEST ACCEPTABLE; ARTERIAL ABE 3.1 MMOL/L (-2.4-+2.3); ARTERIAL PO2 55.8 MMHG (80-100); ARTERIAL TCO2 28.4 MMOL/L (23-27); OXYGEN 100
--- NOTE | 2017-03-02 14:50 | RADIOLOGY REPORT PS360 ---
CHEST PORTABLE-PICC PLACEMENT CLINICAL INDICATION: PICC LINE INSERTION ORDERING PHYSICIAN: Alexandru Fontenot MD PATIENT AGE: 86 years COMPARISON: 02/28/2017 FINDINGS: Right upper extremity PICC line has been inserted with the tip in the region of the caval atrial region. Advised to pull back 2 to 3 cm. Opacified right hemithorax unchanged. Increased markings are present in the left lower lobe consistent with pneumonia superimposed on chronic changes with small left effusion. IMPRESSION: 1. PICC line tip in the region of the cavoatrial region. 2. Left lower lobe pneumonia with small effusion. 3. No change of opacified right hemithorax
--- NOTE | 2017-03-02 14:51 | RADIOLOGY REPORT PS360 ---
CHEST PORTABLE-PICC PLACEMENT CLINICAL INDICATION: PICC LINE PLACEMENT REPOSITION ORDERING PHYSICIAN: Alexandru Fontenot MD PATIENT AGE: 86 years COMPARISON: Same day FINDINGS: PICC line tip is in region of the superior vena cava position from the right upper extremity approach. No change left lower lobe pneumonia with small effusion and opacified right hemithorax. IMPRESSION: 1. Good position of PICC line. 2. Left lower lobe pneumonia with small effusion. 3. Persistent opacified right chest
[2017-03-03] VITALS (7 sets, daily range): BP systolic 76–133; BP diastolic 45–56
[2017-03-03 06:10] LABS: HEMOGLOBIN 11.2 g/dL (12.2-16.2); LYMPH # 0.8 K/mm3 (0.7-4.5); LYMPH % 6.1 % (10-50.0)
--- NOTE | 2017-03-03 08:16 | ACUTE CARE PROGRESS NOTE (QUA) ---
Progress Notes Subjective Date 03/03/17 Time 0814 Note The patient had a very tumultuous evening. Had to be placed back on BiPAP. Lot of agitation symptoms noted. This morning she is sedated, on BiPAP, minimally responsive. Lots of rhonchi, poor air movement. Objective Findings Last VS-Temp:97.7 B/P:129/54 Pulse:95 Resp:16 SaO2:89 OXYGEN Last weight lbs:173 oz:4 K.585 Method:Bed Scales Assessment/Plan Problem List 1. Fall Qualifiers: Encounter type: initial encounter Qualified Code: W19.XXXA - Unspecified fall, initial encounter 2. Lung cancer Qualifiers: Laterality: right Lung location: unspecified part of lung Qualified Code: C34.91 - Malignant neoplasm of unspecified part of right bronchus or lung 3. HTN (hypertension) 4. Respiratory insufficiency 5. Subcapital fracture of neck of left femur Status: Acute Onset Date: 02/28/17 Qualifiers: Fracture type: closed 6. Lytic bone lesion of left femur Patient condition Deteriorating Plan: patient continued to deteriorate. She has a very poor prognosis given her underlying lung cancer. I recommended palliative care. Family will discuss. This inpt stay is expected to cross 2 MNs from start of care Yes at 0815
[2017-03-03 10:56] LABS: NEUTROPHILS 82 % (42-76)
--- NOTE | 2017-03-03 11:05 | ACUTE CARE PROGRESS NOTE ---
Progress note Date: 03/03/17 Assessment: Subjective data: Patient is an 86-year-old female. She is status post left hip cemented bipolar hemiarthroplasty, post op day #2. She is lying down on the bed and appears distressed. She has a BiPAP mask on her face. She says her pain is well controlled. No history of any nausea, vomiting or chest pain. She is requesting to have something to eat. Her general condition has significantly deteriorated from a respiratory point of view. Objective: Reviewed the vital signs, labs, medication, medical progress note and discussed with the nursing staff. Laboratory Tests 03/03/17 0550: Sodium 135 L, Potassium 3.8, Chloride 98, Carbon Dioxide 29, BUN 38 H, Creatinine 1.9 H, Estimated Creat Clear 27 L, Estimated GFR (MDRD) 25 L, Glucose 87, Calcium 9.1, Total Bilirubin 1.1 H, AST 39 H, ALT 16, Alkaline Phosphatase 124 H, Total Protein 6.2 L, Albumin 2.1 L, Globulin 4.1 H, Albumin/Globulin Ratio 0.5 L, WBC 13.2 H, RBC 3.79 L, Hgb 11.2 L, Hct 34.2 L, MCV 90.1, RDW 14.4, Plt Count 206, MPV 7.4, Gran % 89.0 H, Gran # 11.8 H, Total Counted 100, Lymphocytes % 6.1 L, Monocytes % 2.0, Eosinophils % 2.7, Basophils % 0.3, Neutrophils 82 H, Band Neutrophils 3, Lymphocytes (Manual) 4 L, Lymphocytes # 0.8, Monocytes (Manual) 7, Monocytes # 0.3, Eosinophils # 0.4, Eosinophils # (Manual) 2, Basophils # 0.0, Basophils # (Manual) 1, Metamyelocytes 1, Platelet Estimate NORMAL, PUBS MCHC 32.7, MCH 29.5 03/02/17 1433: ABG pH 7.45, ABG pCO2 (Temp Corrct 40.5, ABG pO2 (Temp Correct 55.8 L, ABG HCO3 27.2 H, ABG Total CO2 28.4 H, ABG O2 Sat (Calculated) 88.9 L, ABG Base Excess 3.1 H, Raji Test ACCEPTABLE, Blood Gas Comments R RADIAL Vital Signs Result Date Time O2 Flow Rate 15 10/28 0948 Pulse Ox 89 10/28 0822 B/P 122/57 03/03 822 Temp 97.7 03/03 822 Pulse 90 03/03 822 Resp 14 03/03 822 O2 Delivery OXYGEN 03/03 610 Exam General appearance: alert, awake, apparent distress Neck: normal inspection Cardiovascular: normal sinus rhythm, regular rate & rhythm Respiratory: BiPAP mask in place, widespread rhonchi with decreased breath sounds ABD: non-distended, normal bowel sounds, soft, no tenderness, no organomegaly Genitourinary: catheter in place Skin: dry, intact On examination of her left lower extremity, she has abduction pillow between the legs. The alignment is neutral. The dressings over the left hip are clean, dry and intact. I have changed the dressings today and the wound is healthy. Her thigh and calf are soft and nontender. Distal neurovascular status is intact. Impression: 1. Fall Qualifiers Encounter type: initial encounter Qualified Code: W19.XXXA - Unspecified fall, initial encounter 2. Lung cancer Qualifiers Laterality: right Lung location: unspecified part of lung Qualified Code: C34.91 - Malignant neoplasm of unspecified part of right bronchus or lung 3. HTN (hypertension) 4. Respiratory insufficiency 5. Subcapital fracture of neck of left femur Status: Acute Onset Date: 02/28/17 Qualifiers Fracture type: closed 6. Lytic bone lesion of left femur Plan: I reviewed her vital signs, lab results, nursing notes, medical progress notes, medication and also discussed with the nursing staff regarding her progress. She has significantly deteriorated from a respiratory point of view after surgery and according to Dr. Fontenot has a poor prognosis. The family is aware of the situation. When medically appropriate, physical therapy can mobilize the patient weightbearing as tolerated with a walker. Use abduction pillow when in bed. Continue standard precautions for posterior approach to the hip joint. Continue DVT prophylaxis for 5 weeks. Postoperative dressings were changed today and the incision is healthy. Medical management as per Dr. Fontenot's team.
--- NOTE | 2017-03-07 17:46 | DISCHARGE SUMMARY STANDARD ---
Demographics Admit date: 03/01/17 Discharge date: 03/03/17 History of present illness History of present illness 86 year old female who is followed by Hospice for stage 4 lung cancer presented to the ED with left hip pain s/p fall at home. Patient reports she was attempting to put her robe on when she lost her balance and fell landing on her left hip. In the ED, she was found to have a left hip fracture. CXR showed chronic changes. She is s/p radiation and chemotherapy. Denies h/o tobacco use. She reports HTN, no other CV history. She denies any exertional chest pain or palpitations. No LE edema. She has had general anesthesia in the past without complication. Patient was admitted to acute care for orthopedic evaluation and fracture repair. Below note per initial cardiology consult Cardiology consulted 03/02/2017 for onset of sinus tachycardia at 150 bpm. Patient denies any chest pain. She is on BiPAP currently. Telemetry strips reveal sinus tachycardia rate of 150 bpm. Electrocardiogram shows sinus tachycardia at [address] segment abnormalities with concern for ischemic or strain pattern. Patient has received one dose of IV digoxin 0.25 mg. Sinus tachycardia has improved from 150 bpm to around 100 bpm time of my assessment. Hospital Course Hospital Course: Patient was admitted, cardiology consult done as noted above. Orthopedics consult. Patient was taken to the Operating Room after long discussion with her and her family about the high risk of the surgery and her absolute need for surgery if she wished to be ambulatory. Patient did well with the initial surgical care and the initial postoperative period but began to have problems a couple of hours after surgery with worsening respiratory distress and had to be placed on BiPAP in transition from the PACU to the step down unit. She remained on BiPAP overnight. She complained a great deal of pain from the BiPAP and family was concerned about overall comfort management in regards to this issue. She was able to be weaned off to facemask oxygen with high-dose Lasix and respiratory support. However, her respiratory condition again continued to worsen. I had a long discussion with her children and in view of her terminal medical case with end-stage cancer, current hospice therapy and her overall poor prognosis it was decided to make her care palliative and avoid further BiPAP use given the overall poor prognosis and discomfort she was experiencing with the BiPAP. Patient continued to decline through that morning and at 1 PM on March 03 from her cancer disease/respiratory failure. Discharge diagnoses Problem List 1. Fall 2. Lung cancer 3. HTN (hypertension) 4. Respiratory insufficiency 5. Subcapital fracture of neck of left femur Status Acute Onset Date 02/28/17 6. Lytic bone lesion of left femur Medications Medications: Discharge meds are as noted. Follow up Follow up in office in: 1 DAY with: Alexandru Fontenot MD at 1808
== END 2017-03-03 15:18 | disposition expired | DRG 469 ==
LOC: ER 19:17 → 2ND 21:20 → ER 21:20 → 2ND 21:32
PROVIDERS: Emergency Medicine; Internal Medicine Adolescent Medicine; Orthopaedic Surgery
PROC: 0SRB049 Replacement of Left Hip Joint with Ceramic on Polyethylene Synthetic Substitute, Cemented, Open Approach (ICD-10-PCS; principal; 2017-02-28)
PROC: 5A09457 Assistance with Respiratory Ventilation, 24-96 Consecutive Hours, Continuous Positive Airway Pressure (ICD-10-PCS; 2017-03-01)
PROC: 05H933Z Insertion of Infusion Device into Right Brachial Vein, Percutaneous Approach (ICD-10-PCS; 2017-03-02)
DX: S72.012A Unspecified intracapsular fracture of left femur, initial encounter for closed fracture (principal); J96.91 Respiratory failure, unspecified with hypoxia; C79.51 Secondary malignant neoplasm of bone; C34.11 Malignant neoplasm of upper lobe, right bronchus or lung; N18.3 Chronic kidney disease, stage 3 (moderate); W19.XXXA Unspecified fall, initial encounter; I12.9 Hypertensive chronic kidney disease with stage 1 through stage 4 chronic kidney disease, or unspecified chronic kidney disease
CPT/HCPCS: C1713; C1751; C1776; J2405